=== PATIENT | male | born 1975 | race American Indian/Alaskan Native ===

== ENCOUNTER 2017-01-14 20:13 | Inpatient (IN) | payer MEDICAID, OTHER ==
[2017-01-14 20:13] VITALS: BMI 84.1
[2017-01-14 21:31] LABS: BASO # 0.1 K/uL (0.0-0.2); BASO % 0.8 % (0.0-2.0); EOS # 0.2 K/uL (0.0-0.7); EOS % 2.7 % (0.0-4.0); HEMATOCRIT 36.5 % (35.0-51.0); LYMPH # 3.2 K/uL (1.0-4.3); LYMPH % 46.9 % (20.0-40.0); MEAN CELL VOLUME 83.9 fL (80.0-94.0); MEAN CORPUSCULAR HEMOGLOBIN 27.9 pg (27.0-31.0); MEAN CORPUSCULAR HGB CONC 33.2 g/dL (33.0-37.0); MEAN PLATELET VOLUME 7.4 fL (7.2-11.7); MONO # 0.5 K/uL (0.0-0.8); MONO % 8.1 % (0.0-10.0); RED CELL DISTRIBUTION WIDTH 12.9 % (11.5-14.5); WHITE BLOOD COUNT 6.7 K/uL (4.8-10.8)
[2017-01-14 21:47] LABS: CHLORIDE 108 mmol/L (98-107); POTASSIUM 3.8 mmol/L (3.6-5.2); SODIUM 143 mmol/L (132-148)
[2017-01-14 21:49] LABS: BILIRUBIN,TOTAL 0.7 mg/dL (0.2-1.3); GFR AFRICAN-AMERICAN > 60
[2017-01-14 21:50] LABS: ALB/GLOB RATIO 1.3 (1.0-2.1); ALKALINE PHOSPHATASE 65 U/L (38-126); ALT/SGPT 17 U/L (21-72); AST/SGOT 18 U/L (17-59); BLOOD UREA NITROGEN 17 mg/dL (9-20); CALCIUM 8.7 mg/dl (8.6-10.4); CARBON DIOXIDE 24 mmol/L (22-30); GLUCOSE,RANDOM 84 mg/dL (75-110); TOTAL PROTEIN 6.9 g/dL (6.3-8.3)
[2017-01-14 21:51] LABS: ALCOHOL SERUM < 10 mg/dl (0-10)
[2017-01-14 21:53] LABS: RBC URINE 1 /hpf (0-3); URINE BACTERIA RARE (<OCC); URINE BILIRUBIN NEGATIVE (NEGATIVE); URINE BLOOD NEGATIVE (NEGATIVE); URINE COLOR Straw (YELLOW); URINE GLUCOSE (UA) NORMAL (Normal); URINE KETONE NEGATIVE (NEGATIVE); URINE PROTEIN NEGATIVE (NEGATIVE); URINE UROBILINOGEN NORMAL mg/dL (0.2-1.0); WBC URINE 18 /hpf (0-5)
--- NOTE | 2017-01-14 21:53 | C.PDOC ---
History Of Present Illness 41 year old patient, with a past medical history of schizophrenia, presents to the ED complaining of hearing voices for the past couple of days. He has command hallucinations telling him to kill people and himself. They tell him to stab and shoot people. He has been uncomfortable with the hallucinations which prompted the visit. Patient notes he hasn't had hallucinations in a long time. He is currently taking Ambien and Seroquel. Patient denies any physical complaints at this time. Time Seen by Provider: 01/14/17 20:56 Chief Complaint (Nursing): Psychiatric Evaluation History Per: Patient History/Exam Limitations: no limitations Onset/Duration Of Symptoms: Days (couple of days) Current Symptoms Are (Timing): Still Present Suicide/Self Injury Attempted (Context): None Modifying Factor(s): None Severity: None Pain Scale Rating Of: 0 Associated Symptoms: Other (command hallucinations) Recent travel outside of the [place]: No Past Medical History Reviewed: Historical Data, Nursing Documentation, Vital Signs Vital Signs: Last Vital Signs Temp 98.6 F 01/14/17 20:48 Pulse 58 L 01/14/17 20:48 Resp 16 01/14/17 20:48 BP 118/77 01/14/17 20:48 Pulse Ox 99 01/14/17 22:00 - Medical History PMH: Asthma, Depression, Schizophrenia - [facility] Procedures INDIVID PSYCHOTHERAP NEC (05/02/13) OTHER GROUP THERAPY (05/02/13) PSYCHIAT DRUG THERAP NEC (05/02/13) Family History: States: Unknown Family Hx - Social History Hx Tobacco Use: Yes Hx Alcohol Use: Yes Hx Substance Use: Yes (PCP, Cocaine, ETOH) - Immunization History Hx Tetanus Toxoid Vaccination: No Hx Influenza Vaccination: No Hx Pneumococcal Vaccination: No Review Of Systems Except As Marked, All Systems Reviewed And Found Negative. Respiratory: Negative for: Shortness of Breath Gastrointestinal: Negative for: Nausea, Vomiting Psych: Positive for: Other (command hallucinations) Physical Exam - Physical Exam Appears: Non-toxic, No Acute Distress Skin: Warm, Dry Head: Atraumatic, Normacephalic Neck: Normal ROM, Supple Chest: Symmetrical Cardiovascular: Rhythm Regular Respiratory: Normal Breath Sounds, No Rales, No Rhonchi, No Wheezing Back: Normal Inspection Extremity: Normal ROM Neurological/Psych: Oriented x3, Normal Speech Gait: Steady ED Course And Treatment - Laboratory Results Result Diagrams: 01/14/17 21:25 01/14/17 21:25 Lab Interpretation: No Acute Changes Interpretation Of Abnormal: UDS + PCP and cocaine O2 Sat by Pulse Oximetry: 99 (room air) Pulse Ox Interpretation: Normal Reevaluation Time: 23:22 Reassessment Condition: Unchanged (Patient evaluated by crisis and accepted for psych admission.) Medical Decision Making Medical Decision Making: Plan: * Labs Disposition - Disposition Disposition: HOSPITALIZED Disposition Time: 23:23 Condition: STABLE - POA Present On Arrival: None - Clinical Impression Clinical Impression: Schizophrenia - Scribe Statement The provider has reviewed the documentation as recorded by the Scribe Haylee Roberts Provider Attestation: All medical record entries made by the Scribe were at my direction and personally dictated by me. I have reviewed the chart and agree that the record accurately reflects my personal performance of the history, physical exam, medical decision making, and the department course for this patient. I have also personally directed, reviewed, and agree with the discharge instructions and disposition.
[2017-01-14 21:54] LABS: URINE LEUKOCYTE ESTERASE 2+ Leu/uL (Negative)
[2017-01-14 23:51] VITALS: O2SAT 98
[2017-01-15 07:52] VITALS: BP 112/74; PULSE 68; RESP 20; TEMP 97.6
--- NOTE | 2017-01-15 13:05 | PCM.PSYCH ---
Initial Psychiatric Evaluation - Initial Psychiatric Evaluation Type of Admission: Voluntary Legal Status: Capacity Chief Complaint (in patient's own words): I am feeling suicidal History of Present Illness and Precipitating Events: This is a 41 year old male presenting to [facility] as a self- referral for intrusive suicidal and homicidal thoughts as a result of command auditory hallucinations. Patient remained disorganized and internally preoccupied. He appeared delusional , paranoid and psychotic. He remained superficially cooperative but guarded about the details. He has a long history of schizophrenia paranoid type continuous. He has been admitted multiple times, he was last discharge from [facility] 1 year ago. As a result of the side-effects, pt reports non- compliance with medication. As per the ER note, pt stated, he is suicidal (without a plan), but has attempted suicide "many years ago" via hanging himself. Pt stated that he has been hearing the voices, which are unfamiliar, progrssively over the past week, and "on and off while in the ER." Pt reported homicidal ideation to "stab people in the abdomen," but denied having a weapon in his possession. Pt is currently linked with treatment at [facility] for schizophrenia and bipolar disorder, and reports seeing Dr. Garcia, most recently in December 2016 and is prescribed Seroquel and Ambien, but "that medication just makes it worse." Pt repotrs frequent use of cannabis, cocaine, and PCP, but has not "used anything since Thursday." Pt presents with depressed and anxious mood and blunted affect. PMH None reported Current Medications: Active Medications Generic Name Dose Route Start Last Admin Trade Name Freq PRN Reason Stop Dose Admin Diphenhydramine HCl 50 mg 01/15/17 00:39 01/15/17 01:12 Benadryl PO 50 mg Q6 PRN Administration Extra Pyramidal Symptoms Haloperidol 5 mg 01/15/17 00:39 01/15/17 01:12 Haldol PO 5 mg Q8 PRN Administration Moderate Agitation Haloperidol Lactate 5 mg 01/15/17 00:39 Haldol IM Q8 PRN Moderate Agitation Lorazepam 1 mg 01/15/17 00:39 Ativan PO Q6 PRN Anxiety Trazodone HCl 50 mg 01/15/17 22:00 Desyrel PO HS [facility] Past Psychiatric History - Past Psychiatric History Previous Treatment History: Inpatient Pertinent Medical Hx (Current Medical&Sleep Prob, Allergies): Allergies Allergy/AdvReac Type Severity Reaction Status Date / Time No Known Allergies Allergy Verified 01/14/17 20:52 QUEtiapine [SEROquel] 100 mg PO HS #7 tab 03/17/16 Zolpidem [Ambien] 5 mg PO HS 03/17/16 Benztropine [Cogentin] 1 mg PO BID #60 tab 03/21/16 Divalproex [Depakote DR] 500 mg PO BID #60 tcp 03/21/16 Haloperidol [Haldol] 10 mg PO BID #60 tab 03/21/16 traZODone [Desyrel] 100 mg PO HS PRN #30 tab 03/21/16 Review of Systems - Review of Systems All systems: reviewed and no additional remarkable complaints except - Psychiatric Psychiatric: Auditory Hallucinations, Change in Appetite, Homicidal Ideation, Irritability, Suicidal Ideation Mental Status Examination - Personal Presentation Personal Presentation: Looks stated age - Affect Affect: Constricted, Depressed - Motor Activity Motor Activity: Calm - Reliability in Providing Information Reliability in Providing Information: Good - Speech Speech: Organized - Mood Mood: Depressed, Anxious - Formal Thought Process Formal Thought Process: Hallucinations, Delusions, Paranoia, Loosening of associations - Hallucinations/Delusions Hallucinations: Visual, Auditory Delusions: Persecution - Obsessions/Compulsions Obsessions: No Compulsions: No - Cognitive Functions Orientation: Person, Place Sensorium: Alert Attention/Concentration: Attentive Abstract Thinking: [place] Estimate of Intelligence: Below average Judgement: Imparied, as evidence by: Poor judgement, Imparied, as evidence by: Lack of insight into illness - Risk Risk: Suicidal, Homicidal, Diminished functioning - Strength & Assets Inventory Strength & Assets Inventory: Cooperative - Limitations Limitations: Living alone DSM 5 DX - DSM 5 DSM 5 Diagnosis: Schizoaffective disorder bipolar type Cocaine use disorder severe PCP use disorder severe - Recommended/Plan of Treatment Treatment Recommendations and Plan of Treatment: Schizoaffective disorder bipolar type CBT Psychoeducation Supportive therapy, group therapy, individual therapy Prolixin 5 mg PO BID Neurontin 100 mg by mouth 3 times a day Trazodone 50 mg by mouth daily at bedtime Cocaine use disorder severe CBT Psychoeducation Supportive therapy, individual therapy Use AK for abstinence PCP use disorder severe CBT Psychoeducation Supportive therapy, individual therapy Use AK for abstinence - Smoking Cessation Smoking Cessation Initiated: No
== END 2017-01-15 15:50 | disposition left against medical advice (07) | DRG 430 ==
LOC: C.ER 20:13 → C.5E 23:23
PROVIDERS: ADMIT Psychiatry & Neurology Psychiatry; ATTEND Psychiatry & Neurology Psychiatry
PROC: GZ3ZZZZ Medication Management (ICD-10-PCS; principal; 2017-01-14)
PROC: HZ99ZZZ Pharmacotherapy for Substance Abuse Treatment, Other Replacement Medication (ICD-10-PCS; 2017-01-14)
PROC: GZHZZZZ Group Psychotherapy (ICD-10-PCS; 2017-01-14)
PROC: GZ56ZZZ Individual Psychotherapy, Supportive (ICD-10-PCS; 2017-01-14)
PROC: HZ59ZZZ Individual Psychotherapy for Substance Abuse Treatment, Supportive (ICD-10-PCS; 2017-01-14)
DX: F25.0 Schizoaffective disorder, bipolar type (principal); F14.10 Cocaine abuse, uncomplicated; F16.10 Hallucinogen abuse, uncomplicated; R45.851 Suicidal ideations; R45.850 Homicidal ideations; F12.90 Cannabis use, unspecified, uncomplicated; Z91.5 Personal history of self-harm

== ENCOUNTER 2017-02-22 12:33 | Inpatient (IN) | payer MEDICAID, OTHER ==
[2017-02-22 12:34] VITALS: BMI 84.1
[2017-02-22 12:43] VITALS: O2SAT 100
--- NOTE | 2017-02-22 12:53 | C.PDOC ---
History Of Present Illness 41-year-old male, PMHx includes Asthma, Bipolar Disorder, Depression, and Schizophrenia, presents to the emergency department with complaints of auditory hallucinations. Patient states he has been experiencing worsening auditory hallucinations today, states voices are telling him to kill himself and hurt others. Patients last alcohol and drug use was one week ago. Patient is non- compliant with psych meds x1 month. States he ran out of medications. No suicide attempt or hurting others. Time Seen by Provider: 02/22/17 12:50 Chief Complaint (Nursing): Psychiatric Evaluation History Per: Patient History/Exam Limitations: no limitations Current Symptoms Are (Timing): Still Present Past Medical History Reviewed: Historical Data, Nursing Documentation, Vital Signs Vital Signs: Last Vital Signs Temp 97 F L 02/23/17 09:02 Pulse 73 02/23/17 16:00 Resp 18 02/23/17 09:02 BP 112/72 02/23/17 16:00 Pulse Ox 100 02/22/17 15:12 - Medical History PMH: Asthma, Bipolar Disorder, Depression, Schizophrenia Denies: Diabetes (Patient denied), Hepatitis (Patient denied), HIV, HTN ( Patient denied), Chronic Kidney Disease, Seizures, Sexually Transmitted Disease (Patient denied) [place] [facility] [place] PS[facility]CHOTHERAPY (01/14/17) INDIV PSYCHOTHERAPY FOR SUBSTANCE ABUSE TREATMENT, SUPPORT (01/14/17) INDIVID PSYCHOTHERAP NEC (05/02/13) INDIVIDUAL PSYCHOTHERAPY, SUPPORTIVE (01/14/17) MEDICATION MANAGEMENT (01/14/17) OTHER GROUP THERAPY (05/02/13) PHARMACOTHERAPY FOR SUBSTANCE ABUSE, OTH REPLACE MED (01/14/17) PSYCHIAT DRUG THERAP NEC (05/02/13) Family History: States: No Known Family Hx - Social History Hx Tobacco Use: Yes Hx Alcohol Use: Yes Hx Substance Use: Yes (PCP, Cocaine) - Immunization History Hx Tetanus Toxoid Vaccination: No Hx Influenza Vaccination: No Hx Pneumococcal Vaccination: No Review Of Systems Except As Marked, All Systems Reviewed And Found Negative. Constitutional: Negative for: Fever Cardiovascular: Negative for: Chest Pain Respiratory: Negative for: Shortness of Breath Psych: Positive for: Suicidal ideation, Other (Auditory hallucinations) Physical Exam - Physical Exam Appears: Non-toxic, No Acute Distress, Other (active auditory hallucinations. SI /HI. Flat affect. No signs or sx of acute intox.) Skin: Warm, Dry, No Rash Head: Atraumatic Eye(s): bilateral: Normal Inspection Neck: Normal ROM Respiratory: No Accessory Muscle Use Extremity: Normal ROM Neurological/Psych: Oriented x3 ED Course And Treatment - Laboratory Results Result Diagrams: 02/22/17 13:07 02/22/17 13:07 O2 Sat by Pulse Oximetry: 100 Progress - Data Reviewed Data Reviewed: Lab, Old records - Critical Care Citical Care: Excluding Proc Time Critical Care Time: 90 minutes - Continuity of Care Discussed patient case with:: Patient, Family-HIPPA compliant Disposition Counseled Patient/Family Regarding: Studies Performed, Diagnosis - Disposition Disposition: HOSPITALIZED Disposition Time: 15:12 Condition: STABLE - POA Present On Arrival: None - Clinical Impression Clinical Impression: Schizoaffective disorder - Scribe Statement The provider has reviewed the documentation as recorded by the Scribe (Arleth Taylor) All medical record entries made by the Scribe were at my direction and personally dictated by me. I have reviewed the chart and agree that the record accurately reflects my personal performance of the history, physical exam, medical decision making, and the department course for this patient. I have also personally directed, reviewed, and agree with the discharge instructions and disposition. Decision To Admit - Pt Status Changed To: Hospital Disposition Of: Inpatient - Admit Certification Admit to Inpatient:: After my assessment, the patient will require hospitalization for at least two midnights. This is because of the severity of symptoms shown, intensity of services needed, and/or the medical risk in this patient being treated as an outpatient. - InPatient: Physician Admission Certification: I certify that this patient requires 2 or more midnights of care for the following reason:: SEE NOTE - . Bed Request Type: Psychiatry Admitting Physician: Williams La Patient Diagnosis: Schizoaffective disorder
[2017-02-22 13:12] LABS: BASO # 0.1 K/uL (0.0-0.2); BASO % 0.8 % (0.0-2.0); EOS # 0.2 K/uL (0.0-0.7); EOS % 2.9 % (0.0-4.0); HEMATOCRIT 40.2 % (35.0-51.0); LYMPH # 2.4 K/uL (1.0-4.3); LYMPH % 36.2 % (20.0-40.0); MEAN CELL VOLUME 84.5 fL (80.0-94.0); MEAN CORPUSCULAR HEMOGLOBIN 28.1 pg (27.0-31.0); MEAN CORPUSCULAR HGB CONC 33.2 g/dL (33.0-37.0); MEAN PLATELET VOLUME 7.8 fL (7.2-11.7); MONO # 0.5 K/uL (0.0-0.8); MONO % 7.3 % (0.0-10.0); NRBC % 0.1 % (0.0-2.0); RED CELL DISTRIBUTION WIDTH 13.1 % (11.5-14.5); WHITE BLOOD COUNT 6.7 K/uL (4.8-10.8)
[2017-02-22 13:30] LABS: CHLORIDE 103 mmol/L (98-107)
[2017-02-22 13:31] LABS: SODIUM 142 mmol/L (132-148)
[2017-02-22 13:33] LABS: ALB/GLOB RATIO 1.1 (1.0-2.1); ALKALINE PHOSPHATASE 80 U/L (38-126); AST/SGOT 25 U/L (17-59); BILIRUBIN,TOTAL 0.7 mg/dL (0.2-1.3); BLOOD UREA NITROGEN 20 mg/dL (9-20); CARBON DIOXIDE 25 mmol/L (22-30); GFR AFRICAN-AMERICAN > 60; TOTAL PROTEIN 7.2 g/dL (6.3-8.3)
[2017-02-22 13:34] LABS: ALCOHOL SERUM < 10 mg/dl (0-10); ALT/SGPT 25 U/L (21-72); CALCIUM 8.7 mg/dl (8.6-10.4); GLUCOSE,RANDOM 94 mg/dL (75-110)
[2017-02-22 13:48] LABS: RBC URINE 2 /hpf (0-3); URINE BILIRUBIN NEGATIVE (NEGATIVE); URINE BLOOD NEGATIVE (NEGATIVE); URINE COLOR Yellow (YELLOW); URINE GLUCOSE (UA) NORMAL (Normal); URINE KETONE NEGATIVE (NEGATIVE); URINE LEUKOCYTE ESTERASE 2+ Leu/uL (Negative); URINE PROTEIN NEGATIVE (NEGATIVE); URINE UROBILINOGEN NORMAL mg/dL (0.2-1.0); WBC URINE 57 /hpf (0-5)
--- NOTE | 2017-02-22 16:50 | PCM.BM ---
<Danette Cline - Last Filed: 02/22/17 16:49> Treatment Plan Problems - Problems identified on initial assessmt auditory hallucinations Date Initiated: 02/22/17 Time Initiated: 16:50 Assessment reference: NA Status: Active (positive for PCP and cocaine) Treatment assets and liabiliti Patient Assests: cooperative, negotiates basic needs, cognitively intact Patient Liabilities: financial problems, substance abuse - Milieu Protocol Maintain good personal hygiene: daily Encourage regular showers, daily Remind patient to perform daily oral care Conduct patient checks and document Observation sheet: Q15 minutes Maintain personal safety: every shift Educate patient to report safety concerns to staff, every shift Monitor environment for contraband/sharps Medication safety: Monitor for expected outcome, potential side effects: every shift, Assess barriers to learning: every shift, Assess readiness for medication education: every shift <Gilda Kaba - Last Filed: 02/23/17 11:22> Family Contact Family involvement: Patient does not wish Family/SO involvement - Goals for Treatment Patient goals for treatment: "I'll leave when I leave." Patient's family/SO goals for treatment: N/A Discharge/Continuing Care - Education Needs Education Needs: Patient Medication, Patient Coping Skills, Patient Community resources - Discharge Discharge Criteria: Tolerates medication w/o severe side effects, Reduction of target symptoms Discharge to:: Home - Treatment Team Participation Patient/Family/SO Statement: 02/23/17 11:24 No comment Discussed with Family/SO: No Was Patient/Family/SO present at Treatment Team Meeting: Yes <Williams La - Last Filed: 02/24/17 08:13> - Diagnosis (1) Schizoaffective disorder Status: Acute Interventions: 02/24/17 08:12 * Assess/adjust medications daily and /or as needed * Discuss risks, benefits, sided effects and alternatives of medications * See patient on an individual basis 7x/week to assess level of delusional thoughts/ideation * (2) Cocaine abuse Status: Acute Interventions: 02/24/17 08:13 * Assess 7x/week regarding severity of withdrawal * Educate regarding risks, benefits, side effects and alternatives of medications * Use Motivational Interviewing for abstinence * Use CBT for relapse prevention * Medication management for withdrawal symptoms * Encourage medication assisted treatment * (3) PCP (phencyclidine) abuse Status: Acute Interventions: 02/24/17 08:13 * Assess 7x/week regarding severity of withdrawal * Educate regarding risks, benefits, side effects and alternatives of medications * Use Motivational Interviewing for abstinence * Use CBT for relapse prevention * Medication management for withdrawal symptoms * Encourage medication assisted treatment *
[2017-02-22] MEDS: Divalproex 500 mg DR Tab PO SCH (20:22)
[2017-02-23] MEDS: Divalproex 500 mg DR Tab PO SCH ×2 (10:19→18:25)
--- NOTE | 2017-02-23 11:25 | PCM.PSYCH ---
Initial Psychiatric Evaluation - Initial Psychiatric Evaluation Type of Admission: Voluntary Legal Status: Capacity Chief Complaint (in patient's own words): "Depressed" History of Present Illness and Precipitating Events: The patient is seen, chart reviewed and case discussed. 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 This is a 41-year-old -[place] male single, homeless and unemployed. The patient is a poor historian and has low insight. He is here for depressive symptoms and suicidal ideation and he insists that PCP and cocaine help with psychiatric symptoms. He doesn't seem to have motivation to change his drug use. Currently, he denies feeling suicidal but reports he is still depressed. However he looks calm and happy. He was hearing voices on admission but they disappeared now. He agrees to stay and complete his treatment this time. He goes to [facility] program but was non-compliant with meds Past psych history: Previous psych admissions, again likely related to drug use Medical history: Denies Family psych history: Denies Current Medications: Active Medications Generic Name Dose Route Start Last Admin Trade Name Freq PRN Reason Stop Dose Admin Benztropine Mesylate 1 mg 02/22/17 18:00 02/23/17 10:16 Cogentin PO 1 mg BID ДМИТРИЙ Administration Divalproex Sodium 500 mg 02/22/17 18:00 02/23/17 10:[address] PO Not Given BID ДМИТРИЙ Haloperidol 10 mg 02/22/17 18:00 02/23/17 10:16 Haldol PO 10 mg BID ДМИТРИЙ Administration Haloperidol 5 mg 02/22/17 17:18 Haldol PO Q1H PRN agitation max 4x/24h Hydroxyzine HCl 50 mg 02/22/17 17:18 02/23/17 10:16 Atarax PO 50 mg Q6H PRN Administration Anxiety Ibuprofen 600 mg 02/22/17 17:18 Motrin Tab PO Q6H PRN Pain, moderate (4-7) Trazodone HCl 100 mg 02/22/17 17:18 Desyrel PO HS PRN Insomnia Past Psychiatric History - Past Psychiatric History Pertinent Medical Hx (Current Medical&Sleep Prob, Allergies): Allergies Allergy/AdvReac Type Severity Reaction Status Date / Time No Known Allergies Allergy Verified 02/22/17 12:41 QUEtiapine [SEROquel] 100 mg PO HS #7 tab 03/17/16 Zolpidem [Ambien] 5 mg PO HS 03/17/16 Benztropine [Cogentin] 1 mg PO BID #60 tab 03/21/16 Divalproex [Depakote DR] 500 mg PO BID #60 tcp 03/21/16 Haloperidol [Haldol] 10 mg PO BID #60 tab 03/21/16 traZODone [Desyrel] 100 mg PO HS PRN #30 tab 03/21/16 Review of Systems - Psychiatric Psychiatric: Abnormal Sleep Pattern, Anxiety, Depression, Hallucinations, Irritability, Paranoia. absent: Homicidal Ideation, Suicidal Ideation Mental Status Examination - Personal Presentation Personal Presentation: Looks older than stated age - Affect Affect: Constricted - Motor Activity Motor Activity: Calm - Reliability in Providing Information Reliability in Providing Information: Fair - Speech Speech: Organized - Mood Mood: Anxious - Formal Thought Process Formal Thought Process: Hallucinations, Paranoia - Cognitive Functions Orientation: Person, Place, Situation, Time Sensorium: Alert Attention/Concentration: Easily distracted Abstract Thinking: [place] Estimate of Intelligence: Below average Judgement: Imparied, as evidence by: Poor judgement Memory: Recent intact, as evidence by: Ability to recall events of the day, Remote impaired as evidenced by: Inability to recall historical events - Risk Risk: Diminished functioning - Strength & Assets Inventory Strength & Assets Inventory: Cooperative - Limitations Limitations: Living alone DSM 5 DX - DSM 5 DSM 5 Diagnosis: Schizoaffective d/o - depressed r/o substance-induced mood d/o and psychosis Cocaine use d/o - severe Cannabis use d/o - severe PCP use d/o - severe - Recommended/Plan of Treatment Treatment Recommendations and Plan of Treatment: Depakote for schizoaffective disorder Haldol for psychotic symptoms Support and psychoeducation Patient is refusing Seroquel Attend groups and activities Motivational interviewing for substance use CBT for relapse prevention Refer to [facility] but add substance program 32 minutes Projected ELOS: 4 days Prognosis: Fair - Smoking Cessation Smoking Cessation Initiated: Yes
[2017-02-24] MEDS: Divalproex 500 mg DR Tab PO SCH ×2 (09:52→17:31)
[2017-02-24 13:17] VITALS: BP 126/82; PULSE 98; RESP 19; TEMP 98.6
--- NOTE | 2017-02-24 14:05 | PCM.PYCHPN ---
Psychiatric Progress Note - Psychiatric Progress Note Patient seen today, length of contact: 16 min Patient Chief Complaint: I am feeling better Problems Identified/Issues Discussed: Patient seen and evaluated, chart reviewed and discussed with the nurse. The patient reports improvement in his mood and denies any feelings of hopelessness and helplessness. He reports improvement in his sleep, but he remained isolated and continued to pace back and forth in the hallways. The pt is compliant with medications and denies any side-effects. Symptoms are improving but needs more time to stabilize. After care discussed, support and psychoeducation given. Medication Change: No Medical Record Reviewed: Yes Mental Status Examination - Cognitive Function Orientation: Person, Place, Situation, Time Memory: Intact Attention: WNL Concentration: Poor Association: WNL Fund of Knowledge: Poor - Mood Mood: Anxious - Affect Affect: Constricted - Speech Speech: Soft - Formal Thought Process Formal Thought Process: Paranoia - Suicidal Ideation Suicidal Ideation: No - Homicidal Ideation Homicidal Ideation: No Goal/Treatment Plan - Goal/Treatment Plan Need for Continued Stay: Discharge may exacerbated symptoms, Severe functional impairment Progress Toward Problem(s) and Goals/Treatment Plan: Schizoaffective d/o - depressed r/o substance-induced mood d/o and psychosis Cocaine use d/o - severe Cannabis use d/o - severe PCP use d/o - severe Depakote for schizoaffective disorder Haldol for psychotic symptoms Support and psychoeducation Patient is refusing Seroquel Attend groups and activities Motivational interviewing for substance use CBT for relapse prevention Refer to [facility] but add substance program - Smoking Cessation Smoking Cessation Initiated: No
--- NOTE | 2017-02-25 17:13 | PCM.PYCHDC ---
Mental Status Examination - Mental Status Examination Orientation: Person, Place, Situation, Time Memory: Intact Mood: Neutral Affect: Constricted Speech: Soft Attention: WNL Concentration: WNL Association: WNL Fund of Knowledge: WNL Formal Thought Process: No Impairment Description of patient's judgement and insight: partially impaired Psychotic Thoughts and Behaviors: denies any AVH Suicidal Ideation: No Current Homicidal Ideation?: No Discharge Summary - Discharge Note Reason for Hospitalization: This is a 41-year-old -Nepalese male single, homeless and unemployed. The patient is a poor historian and has low insight. He is here for depressive symptoms and suicidal ideation and he insists that PCP and cocaine help with psychiatric symptoms. He doesn't seem to have motivation to change his drug use. Currently, he denies feeling suicidal but reports he is still depressed. However he looks calm and happy. He was hearing voices on admission but they disappeared now. He agrees to stay and complete his treatment this time. He goes to [facility] but was non-compliant with meds Past psych history: Previous psych admissions, again likely related to drug use Consultations:: List each consultation separately and include: 1. Reason for request. 2. Findings. 3. Follow-up Summary of Hospital Course include:: 1. Description of specific treatment plan utilized for patients during their course of treatmen. 2. Summarize the time- course for resolution of acute symptoms and/or regressed behaviors. 3. Describe issues identified and worked on during hospitalization. 4. Describe medication utilized. 5. Describe medical problems identified and treated. 6. Reassessment of suicide risk Summary of Hospital Course: During the course of his stay, patient (pt) started progressively improving, however he still had paranoia. Today in the evening patient, requested to be discharged. He was asked to sign 48 hours notice, but he started yelling and cursing at the staff and demanding to be discharged immediately. However, he denied any suicidal ideation or homicidal ideation and denied any auditory or visual hallucinations. - Final Diagnosis (DSM 5) Condition upon Discharge: STABLE DSM 5: Schizoaffective d/o - depressed Disposition: AGAINST MEDICAL ADVICE Follow-up Treatment Plan: Education: Pt was educated and counseled about the risks and benefits of taking and not taking medications. Pt was educated and counseled about the risks of drinking and abusing drugs. Pt was educated and counseled to go to the ER or call 911 if pt develop suicidal ideation or homicidal ideation, worsening of symptoms or severe side effects of the meds. - Smoking Cessation Smoking Cessation Medication prescribed: No - Antipsychotic Medications Pt discharged on 2 or more routine antipsychotic medications: No
== END 2017-02-24 17:35 | disposition left against medical advice (07) | DRG 430 ==
LOC: C.ER 12:33 → C.5E 15:12
PROVIDERS: ADMIT Psychiatry & Neurology Psychiatry; ATTEND Psychiatry & Neurology Psychiatry
PROC: GZ3ZZZZ Medication Management (ICD-10-PCS; principal; 2017-02-22)
PROC: HZ59ZZZ Individual Psychotherapy for Substance Abuse Treatment, Supportive (ICD-10-PCS; 2017-02-22)
PROC: GZHZZZZ Group Psychotherapy (ICD-10-PCS; 2017-02-22)
PROC: GZ56ZZZ Individual Psychotherapy, Supportive (ICD-10-PCS; 2017-02-22)
DX: F25.1 Schizoaffective disorder, depressive type (principal); R45.851 Suicidal ideations; F11.20 Opioid dependence, uncomplicated; F14.20 Cocaine dependence, uncomplicated; F16.20 Hallucinogen dependence, uncomplicated; F12.20 Cannabis dependence, uncomplicated; J45.909 Unspecified asthma, uncomplicated; Z59.0 Homelessness; Z91.14 Patient's other noncompliance with medication regimen; Z91.19 Patient's noncompliance with other medical treatment and regimen

== ENCOUNTER 2017-04-01 05:39 | Emergency (ER) | payer OTHER ==
[2017-04-01 05:39] VITALS: BMI 84.1
[2017-04-01 05:57] VITALS: RESP 18
--- NOTE | 2017-04-01 06:04 | C.PDOC ---
History Of Present Illness <Dhruv French - Last Filed: 04/01/17 06:07> <Idania Shukla - Last Filed: 04/01/17 08:57> 41 y/o male comes in c/o hearing voices stating "they're saying to kill himself and others" today. Denies somatic complaints. Patient is non-compliant with his medications. No suicidal or homicidal plan. (Dhruv French) History Per: Patient History/Exam Limitations: no limitations Onset/Duration Of Symptoms: Hrs Current Symptoms Are (Timing): Still Present Suicide/Self Injury Attempted (Context): None Severity: Mild Associated Symptoms: Suicidal Thoughts. denies: Suicidal Plan Recent travel outside of the [place]: No Additional History Per: Patient <Dhruv French - Last Filed: 04/01/17 06:07> <Idania Shukla - Last Filed: 04/01/17 08:57> Time Seen by Provider: 04/01/17 05:55 Chief Complaint (Nursing): Psychiatric Evaluation Past Medical History Reviewed: Historical Data, Nursing Documentation, Vital Signs - Medical History PMH: Asthma, Bipolar Disorder, Depression, Schizophrenia Denies: Diabetes (Patient denied), Hepatitis (Patient denied), HIV, HTN ( Patient denied), Chronic Kidney Disease, Seizures, Sexually Transmitted Disease (Patient denied) Family History: States: Unknown Family Hx - Social History Hx Tobacco Use: Yes Hx Alcohol Use: Yes Hx Substance Use: Yes (PCP, Cocaine) - Immunization History Hx Tetanus Toxoid Vaccination: No Hx Influenza Vaccination: No Hx Pneumococcal Vaccination: No <Dhruv French - Last Filed: 04/01/17 06:07> Review Of Systems Except As Marked, All Systems Reviewed And Found Negative. Constitutional: Negative for: Fever Cardiovascular: Negative for: Chest Pain Respiratory: Negative for: Cough, Shortness of Breath Gastrointestinal: Negative for: Abdominal Pain Psych: Positive for: Psychosis (Hearing voices), Suicidal ideation (No plan), Other (Homicidal ideation, No plan) <Dhruv French - Last Filed: 04/01/17 06:07> Physical Exam <Dhruv French - Last Filed: 04/01/17 06:07> <Idania Shukla - Last Filed: 04/01/17 08:57> - Physical Exam Additional Physical Exam Comments: Constitutional: No acute distress. Flat affect Head: Normocephalic. Atraumatic. Eyes: PERRL. ENT: Moist mucous membranes. Neck: Supple. Cardiovascular: Regular rate. Radial pulse 2+ bilaterally. Chest: No tenderness. Respiratory: Clear to auscultation bilaterally. GI: Soft. Nontender. Nondistended. Back: No CVA tenderness. Musculoskeletal: No tenderness or swelling of extremities. Skin: No rash. Neurologic: Alert, no focal deficit. (ManoloDhruv Muñoz) ED Course And Treatment O2 Sat by Pulse Oximetry: 97 (RA) Pulse Ox Interpretation: Normal <Dhruv French - Last Filed: 04/01/17 06:07> - Laboratory Results Result Diagrams: 04/01/17 06:27 04/01/17 06:27 <Idania Shukla - Last Filed: 04/01/17 08:57> Medical Decision Making <ManoloDhruv - Last Filed: 04/01/17 06:07> <Idania Shukla - Last Filed: 04/01/17 08:57> Medical Decision Making: Impression: 41 y/o male comes in c/o hearing voices stating "they're saying to kill himself and others" today. No suicidal or homicidal plan. Plans: * Blood work up * UA (ManoloDhruv) Disposition <ManoloDhruv - Last Filed: 04/01/17 06:07> Counseled Patient/Family Regarding: Studies Performed, Diagnosis, Need For Followup, Rx Given - Disposition Disposition Time: 09:00 <Idania Shukla - Last Filed: 04/01/17 08:57> - Disposition Referrals: [facility] [Outside] Disposition: HOME/ ROUTINE Condition: STABLE Prescriptions: QUEtiapine [SEROquel] 100 mg PO HS #10 tab Forms: [facility] (Slovak), General Discharge Instructions Print Language: VIETNAMESE - Clinical Impression Clinical Impression: PCP abuse, Psychosis - Scribe Statement The provider has reviewed the documentation as recorded by the Scribe <ManoloHdruv Toni - Last Filed: 04/01/17 06:07> <Idania Shukla - Last Filed: 04/01/17 08:57> - Scribe Statement Nia galan All medical record entries made by the Scribe were at my direction and personally dictated by me. I have reviewed the chart and agree that the record accurately reflects my personal performance of the history, physical exam, medical decision making, and the department course for this patient. I have also personally directed, reviewed, and agree with the discharge instructions and disposition. (Dhruv French) Addendum <Dhruv French - Last Filed: 04/01/17 06:07> <Idania Shukla - Last Filed: 04/01/17 08:57> Addendum: 04/01/17 08:55 Patient has been seen by psychiatrist Dr. mcintosh, who has cleared him for discharge from psychiatric standpoint. He requests patient be given Rx for seroquel 100mg PO qhs x 5 days. Patient is currently AAOx3, ambulating normally in ED and is clinically sober. He denies SI/HI. (Idania Shukla)
[2017-04-01 06:32] LABS: BASO % 0.6 % (0.0-2.0); EOS # 0.1 K/uL (0.0-0.7); EOS % 0.9 % (0.0-4.0); HEMATOCRIT 38.6 % (35.0-51.0); LYMPH % 13.7 % (20.0-40.0); MEAN CELL VOLUME 84.8 fL (80.0-94.0); MEAN CORPUSCULAR HEMOGLOBIN 28.4 pg (27.0-31.0); MEAN CORPUSCULAR HGB CONC 33.4 g/dL (33.0-37.0); MEAN PLATELET VOLUME 8.2 fL (7.2-11.7); MONO # 0.4 K/uL (0.0-0.8); MONO % 5.3 % (0.0-10.0); RED CELL DISTRIBUTION WIDTH 13.4 % (11.5-14.5); WHITE BLOOD COUNT 7.6 K/uL (4.8-10.8)
[2017-04-01 06:35] LABS: RBC URINE 1 /hpf (0-3); URINE BILIRUBIN NEGATIVE (NEGATIVE); URINE BLOOD NEGATIVE (NEGATIVE); URINE COLOR Yellow (YELLOW); URINE GLUCOSE (UA) NORMAL (Normal); URINE HYALINE CAST 0-2 /lpf (0-2); URINE KETONE NEGATIVE (NEGATIVE); URINE LEUKOCYTE ESTERASE NEG Leu/uL (Negative); URINE PROTEIN 1+ mg/dL (NEGATIVE); URINE UROBILINOGEN NORMAL mg/dL (0.2-1.0); WBC URINE 9 /hpf (0-5)
[2017-04-01 06:39] LABS: CHLORIDE 103 mmol/L (98-107)
[2017-04-01 06:40] LABS: POTASSIUM 4.1 mmol/L (3.6-5.2); SODIUM 143 mmol/L (132-148)
[2017-04-01 06:42] LABS: CARBON DIOXIDE 24 mmol/L (22-30); GFR AFRICAN-AMERICAN > 60
[2017-04-01 06:43] LABS: ALB/GLOB RATIO 1.2 (1.0-2.1); ALKALINE PHOSPHATASE 87 U/L (38-126); ALT/SGPT 28 U/L (21-72); AST/SGOT 29 U/L (17-59); BILIRUBIN,TOTAL 0.6 mg/dL (0.2-1.3); BLOOD UREA NITROGEN 19 mg/dL (9-20); CALCIUM 9.7 mg/dl (8.6-10.4); GLUCOSE,RANDOM 99 mg/dL (75-110); TOTAL PROTEIN 7.9 g/dL (6.3-8.3)
[2017-04-01 06:44] LABS: ALCOHOL SERUM < 10 mg/dl (0-10)
[2017-04-01 08:24] VITALS: BP 113/74; PULSE 74; TEMP 98.3; O2SAT 98
--- NOTE | 2017-04-01 08:42 | PCM.PSYCH ---
Initial Psychiatric Evaluation - Initial Psychiatric Evaluation Type of Admission: Voluntary Legal Status: Capacity Chief Complaint (in patient's own words): "I'm hearing voices" History of Present Illness and Precipitating Events: The pt is seen, chart reviewed and case discussed. He is well-known to us from several previous admissions, where he almost always leaves AMA and does not follow up. This is a 41-year-old -Swazi male single, homeless and unemployed. The patient is a poor historian and has low insight. He is here for telling him to hurt self and others. He again used PCP and did not follow up with [facility] , nor took his psych meds.. He is aware of this pattern and told the typewriter mechanic he would follow up. No intention or plan to hurt self or others. He is likely using symptoms to get admission again. He is advised to follow up with [facility] and also consider [facility] if he cannot see his [employer] workers (or come to [facility] as last resort if homi/mounika), he agreed. He is also encouraged to stay clean and educated on risks of drugs. Past psych history: Previous psych admissions, again likely related to drug use Medical history: Denies Family psych history: Denies Past Psychiatric History - Past Psychiatric History Previous Treatment History: Inpatient Pertinent Medical Hx (Current Medical&Sleep Prob, Allergies): Allergies Allergy/AdvReac Type Severity Reaction Status Date / Time No Known Allergies Allergy Verified 04/01/17 05:49 QUEtiapine [SEROquel] 100 mg PO HS #7 tab 03/17/16 Zolpidem [Ambien] 5 mg PO HS 03/17/16 Benztropine [Cogentin] 1 mg PO BID #60 tab 03/21/16 Divalproex [Depakote DR] 500 mg PO BID #60 tcp 03/21/16 Haloperidol [Haldol] 10 mg PO BID #60 tab 03/21/16 traZODone [Desyrel] 100 mg PO HS PRN #30 tab 03/21/16 Review of Systems - Psychiatric Psychiatric: Abnormal Sleep Pattern, Anhedonia, Anxiety, Depression, Difficulty Concentrating, Hallucinations, Irritability. absent: Homicidal Ideation, Suicidal Ideation Mental Status Examination - Personal Presentation Personal Presentation: Looks older than stated age - Affect Affect: Blunted - Motor Activity Motor Activity: Calm - Reliability in Providing Information Reliability in Providing Information: Fair - Speech Speech: Organized - Mood Mood: Depressed, Anxious - Formal Thought Process Formal Thought Process: Hallucinations, Paranoia - Cognitive Functions Orientation: Person, Place, Situation, Time Sensorium: Alert Attention/Concentration: Easily distracted Abstract Thinking: [place] Estimate of Intelligence: Below average Judgement: Imparied, as evidence by: Poor judgement Memory: Recent intact, as evidence by: Ability to recall events of the day, Remote intact, as evidenced by: Abilit to recall sig. life events - Risk Risk: Diminished functioning - Strength & Assets Inventory Strength & Assets Inventory: Cooperative - Limitations Limitations: Living alone DSM 5 DX - DSM 5 DSM 5 Diagnosis: Schizoaffective d/o - depressed PCP-induced psychosis Cocaine use d/o - severe Cannabis use d/o - severe PCP use d/o - severe - Recommended/Plan of Treatment Treatment Recommendations and Plan of Treatment: Cleared for discharge Recommend he go to back to [facility] program again Also consider IOP (on top of [facility]), i.e. [facility] Seroquel 100 mg HS Return to ED if mounika/homi 31 min
== END 2017-04-01 09:10 | disposition home or self-care (01) ==
LOC: C.ER 05:39
DX: F16.10 Hallucinogen abuse, uncomplicated (principal); F29 Unspecified psychosis not due to a substance or known physiological condition; F31.9 Bipolar disorder, unspecified

== ENCOUNTER 2017-04-01 17:59 | Emergency (ER) | payer OTHER ==
[2017-04-01 18:14] VITALS: BMI 34.4
[2017-04-01 18:18] VITALS: RESP 18; O2SAT 98
--- NOTE | 2017-04-01 18:53 | C.PDOC ---
History Of Present Illness 41 year old male presents to the ED with complaints of hearing voices telling him to kill himself. Patient was seen in [place] earlier this morning, was evaluated and discharged. He denies homicidal ideations or physical complaints at this time. Time Seen by Provider: 04/01/17 18:23 Chief Complaint (Nursing): Psychiatric Evaluation History Per: Patient History/Exam Limitations: no limitations Onset/Duration Of Symptoms: Hrs Current Symptoms Are (Timing): Still Present Suicide/Self Injury Attempted (Context): None Associated Symptoms: Suicidal Thoughts (hearing voices telling him to kill himself ). denies: Suicidal Plan Involuntary Hold By: None Recent travel outside of the [place]: No Additional History Per: Prior Records Past Medical History Reviewed: Historical Data, Nursing Documentation, Vital Signs Vital Signs: Last Vital Signs Temp 97.7 F 04/01/17 20:30 Pulse 64 04/01/17 20:30 Resp 18 04/01/17 20:30 BP 104/66 04/01/17 20:30 Pulse Ox 98 04/01/17 20:34 - Medical History PMH: Asthma, Bipolar Disorder, Depression, Schizophrenia - [facility] Procedures GROUP PSYCHOTHERAPY (02/22/17) INDIV PSYCHOTHERAPY FOR SUBSTANCE ABUSE TREATMENT, SUPPORT (02/22/17) INDIVID PSYCHOTHERAP NEC (05/02/13) INDIVIDUAL PSYCHOTHERAPY, SUPPORTIVE (02/22/17) MEDICATION MANAGEMENT (02/22/17) OTHER GROUP THERAPY (05/02/13) PHARMACOTHERAPY FOR SUBSTANCE ABUSE, OTH REPLACE MED (01/14/17) PSYCHIAT DRUG THERAP NEC (05/02/13) Family History: States: Unknown Family Hx - Social History Hx Tobacco Use: Yes Hx Alcohol Use: Yes Hx Substance Use: Yes (PCP, Cocaine) - Immunization History Hx Tetanus Toxoid Vaccination: No Hx Influenza Vaccination: No Hx Pneumococcal Vaccination: No Review Of Systems Constitutional: Negative for: Fever, Chills Cardiovascular: Negative for: Chest Pain, Palpitations Respiratory: Negative for: Cough, Shortness of Breath Gastrointestinal: Negative for: Nausea, Vomiting, Abdominal Pain, Diarrhea Psych: Positive for: Suicidal ideation (hearing voices telling him to kill himself) Physical Exam - Physical Exam Appears: Non-toxic, No Acute Distress Skin: Warm, Dry Head: Atraumatic Eye(s): bilateral: Normal Inspection Oral Mucosa: Moist Neck: Supple Chest: Symmetrical, No Deformity Cardiovascular: Rhythm Regular Respiratory: Normal Breath Sounds, No Rales, No Rhonchi, No Wheezing Gastrointestinal/Abdominal: Soft, No Tenderness, No Distention, No Guarding, No Rebound Extremity: Normal ROM, No Tenderness Neurological/Psych: Oriented x3, Normal Speech, Normal Cognition ED Course And Treatment - Laboratory Results Result Diagrams: 04/01/17 18:51 04/01/17 18:51 O2 Sat by Pulse Oximetry: 98 (room air ) Progress Note: Patient was re-examined by Crisis and cleared for discharge. Patient instructed to follow up with [facility], as previously instructed this morning. Disposition - Disposition Referrals: [facility], [Non-Staff] - Disposition: HOME/ ROUTINE Disposition Time: 19:30 Condition: GOOD Additional Instructions: Thank you for letting us take care of you today. The emergency medical care you received today was directed at your acute symptoms. If you were prescribed any medication, please fill it and take as directed. It may take several days for your symptoms to resolve. Return to the Emergency Department if your symptoms worsen, do not improve, or if you have any other problems. Please contact your doctor or call one of the physicians/clinics you have been referred to that are listed on the Patient Visit Information form that is included in your discharge packet. Bring any paperwork you were given at discharge with you along with any medications you are taking to your follow up visit. Our treatment cannot replace ongoing medical care by a primary care provider (PCP) outside of the emergency department. Thank you for allowing the [facility] team to be part of your care today. Follow up with [facility]/Path program as instructed. Take your medications as prescribed. Forms: [facility] (American) - Clinical Impression Clinical Impression: Depression - Scribe Statement The provider has reviewed the documentation as recorded by the Scribe Brandie Prince All medical record entries made by the Scribe were at my direction and personally dictated by me. I have reviewed the chart and agree that the record accurately reflects my personal performance of the history, physical exam, medical decision making, and the department course for this patient. I have also personally directed, reviewed, and agree with the discharge instructions and disposition.
[2017-04-01 19:00] LABS: URINE BILIRUBIN NEGATIVE (NEGATIVE); URINE BLOOD NEGATIVE (NEGATIVE); URINE COLOR Yellow (YELLOW); URINE GLUCOSE (UA) NORMAL (Normal); URINE KETONE NEGATIVE (NEGATIVE); URINE PROTEIN NEGATIVE (NEGATIVE); URINE UROBILINOGEN NORMAL mg/dL (0.2-1.0)
[2017-04-01 19:01] LABS: BASO # 0.1 K/uL (0.0-0.2); BASO % 0.7 % (0.0-2.0); EOS # 0.2 K/uL (0.0-0.7); HEMATOCRIT 36.8 % (35.0-51.0); LYMPH # 2.5 K/uL (1.0-4.3); LYMPH % 32.1 % (20.0-40.0); MEAN CELL VOLUME 84.4 fL (80.0-94.0); MEAN CORPUSCULAR HEMOGLOBIN 27.7 pg (27.0-31.0); MEAN CORPUSCULAR HGB CONC 32.8 g/dL (33.0-37.0); MEAN PLATELET VOLUME 8.1 fL (7.2-11.7); MONO # 0.9 K/uL (0.0-0.8); MONO % 10.9 % (0.0-10.0); NRBC % 0.1 % (0.0-2.0); RED CELL DISTRIBUTION WIDTH 13.3 % (11.5-14.5); WHITE BLOOD COUNT 7.9 K/uL (4.8-10.8)
[2017-04-01 19:03] LABS: CHLORIDE 106 mmol/L (98-107)
[2017-04-01 19:04] LABS: SODIUM 142 mmol/L (132-148)
[2017-04-01 19:05] LABS: RBC URINE 2 /hpf (0-3); URINE BACTERIA OCC (<OCC); WBC URINE 45 /hpf (0-5)
[2017-04-01 19:06] LABS: ALB/GLOB RATIO 1.2 (1.0-2.1); ALKALINE PHOSPHATASE 75 U/L (38-126); AST/SGOT 25 U/L (17-59); BILIRUBIN,TOTAL 0.7 mg/dL (0.2-1.3); BLOOD UREA NITROGEN 19 mg/dL (9-20); CARBON DIOXIDE 23 mmol/L (22-30); GFR AFRICAN-AMERICAN > 60; TOTAL PROTEIN 7.2 g/dL (6.3-8.3); URINE LEUKOCYTE ESTERASE 3+ Leu/uL (Negative)
[2017-04-01 19:07] LABS: ALCOHOL SERUM < 10 mg/dl (0-10); ALT/SGPT 29 U/L (21-72); CALCIUM 9.4 mg/dl (8.6-10.4); GLUCOSE,RANDOM 83 mg/dL (75-110); POTASSIUM 3.9 mmol/L (3.6-5.2)
[2017-04-01 20:31] VITALS: BP 104/66; PULSE 64; TEMP 97.7
== END 2017-04-01 20:00 | disposition home or self-care (01) ==
LOC: C.ER 17:59
DX: F32.9 Major depressive disorder, single episode, unspecified (principal); F20.9 Schizophrenia, unspecified
CPT/HCPCS: 80053; 81001; 85025; 99285; G0480

== ENCOUNTER 2017-04-05 18:50 | Emergency (ER) | payer OTHER ==
[2017-04-05 18:50] VITALS: BMI 34.4
[2017-04-05 19:24] LABS: BASO # 0.1 K/uL (0.0-0.2); BASO % 0.8 % (0.0-2.0); EOS # 0.3 K/uL (0.0-0.7); EOS % 3.7 % (0.0-4.0); HEMATOCRIT 40.9 % (35.0-51.0); LYMPH # 3.6 K/uL (1.0-4.3); LYMPH % 48.5 % (20.0-40.0); MEAN CELL VOLUME 84.3 fL (80.0-94.0); MEAN CORPUSCULAR HGB CONC 33.2 g/dL (33.0-37.0); MEAN PLATELET VOLUME 7.7 fL (7.2-11.7); MONO # 0.6 K/uL (0.0-0.8); MONO % 7.7 % (0.0-10.0); NRBC % 0.2 % (0.0-2.0); RED CELL DISTRIBUTION WIDTH 13.5 % (11.5-14.5); WHITE BLOOD COUNT 7.4 K/uL (4.8-10.8)
[2017-04-05 19:30] LABS: RBC URINE 1 /hpf (0-3); URINE BACTERIA OCC (<OCC); URINE BILIRUBIN NEGATIVE (NEGATIVE); URINE BLOOD NEGATIVE (NEGATIVE); URINE COLOR Yellow (YELLOW); URINE GLUCOSE (UA) NORMAL (Normal); URINE KETONE NEGATIVE (NEGATIVE); URINE LEUKOCYTE ESTERASE 1+ Leu/uL (Negative); URINE PROTEIN NEGATIVE (NEGATIVE); URINE UROBILINOGEN NORMAL mg/dL (0.2-1.0); WBC URINE 30 /hpf (0-5)
[2017-04-05 19:39] LABS: ALB/GLOB RATIO 1.1 (1.0-2.1); ALCOHOL SERUM < 10 mg/dl (0-10); ALKALINE PHOSPHATASE 87 U/L (38-126); ALT/SGPT 29 U/L (21-72); AST/SGOT 22 U/L (17-59); BILIRUBIN,TOTAL 0.6 mg/dL (0.2-1.3); BLOOD UREA NITROGEN 14 mg/dL (9-20); CALCIUM 9.5 mg/dl (8.6-10.4); CARBON DIOXIDE 24 mmol/L (22-30); CHLORIDE 105 mmol/L (98-107); GFR AFRICAN-AMERICAN > 60; GLUCOSE,RANDOM 82 mg/dL (75-110); POTASSIUM 3.8 mmol/L (3.6-5.2); SODIUM 143 mmol/L (132-148); TOTAL PROTEIN 7.8 g/dL (6.3-8.3)
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
[2017-04-06 06:10] VITALS: BP 111/69; PULSE 58; RESP 16; TEMP 98
[2017-04-08 09:27] VITALS: O2SAT 100
== END 2017-04-06 06:10 | disposition home or self-care (01) ==
LOC: C.ER 18:50
DX: F16.10 Hallucinogen abuse, uncomplicated (principal); F31.9 Bipolar disorder, unspecified; F20.9 Schizophrenia, unspecified
CPT/HCPCS: 80053; 81001; 85025; 99285; G0480

== ENCOUNTER 2017-04-06 10:08 | Observation (INO) | payer OTHER ==
[2017-04-06 10:12] VITALS: BMI 36.0
--- NOTE | 2017-04-06 10:28 | C.PDOC ---
Time Seen by Provider: 04/06/17 10:28 Chief Complaint (Nursing): Chest Pain Past Medical History Vital Signs: Last Vital Signs Temp 98.1 F 04/06/17 10:12 Pulse 105 H 04/06/17 10:12 Resp 18 04/06/17 10:12 BP 118/81 04/06/17 10:21 Pulse Ox 97 04/06/17 10:12 - Medical History PMH: Asthma, Bipolar Disorder, Depression, Schizophrenia Denies: Diabetes, Hepatitis, HIV, HTN, Chronic Kidney Disease, Seizures, Sexually Transmitted Disease - [facility] Procedures GROUP PSYCHOTHERAPY (02/22/17) INDIV PSYCHOTHERAPY FOR SUBSTANCE ABUSE TREATMENT, SUPPORT (02/22/17) INDIVID PSYCHOTHERAP NEC (05/02/13) INDIVIDUAL PSYCHOTHERAPY, SUPPORTIVE (02/22/17) MEDICATION MANAGEMENT (02/22/17) OTHER GROUP THERAPY (05/02/13) PHARMACOTHERAPY FOR SUBSTANCE ABUSE, OTH REPLACE MED (01/14/17) PSYCHIAT DRUG THERAP NEC (05/02/13) Family History: States: Unknown Family Hx - Social History Hx Tobacco Use: Yes Hx Alcohol Use: Yes Hx Substance Use: Yes (PCP, Cocaine) - Immunization History Hx Tetanus Toxoid Vaccination: No Hx Influenza Vaccination: No Hx Pneumococcal Vaccination: No ED Course And Treatment O2 Sat by Pulse Oximetry: 97 Disposition - Disposition Forms: [employer] (Solomon Islander)
[2017-04-06] MEDS ORDERED: Sodium Chloride 0.9% 1,000 ML IV STA (10:55)
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
[2017-04-06 11:22] LABS: WHITE BLOOD COUNT 5.6 K/uL (4.8-10.8)
[2017-04-06 11:25] LABS: BASO % 0.7 % (0.0-2.0); EOS # 0.3 K/uL (0.0-0.7); EOS % 4.7 % (0.0-4.0); HEMATOCRIT 40.1 % (35.0-51.0); LYMPH # 2.4 K/uL (1.0-4.3); LYMPH % 42.5 % (20.0-40.0); MEAN CELL VOLUME 85.6 fL (80.0-94.0); MEAN CORPUSCULAR HEMOGLOBIN 28.5 pg (27.0-31.0); MEAN CORPUSCULAR HGB CONC 33.3 g/dL (33.0-37.0); MEAN PLATELET VOLUME 8.2 fL (7.2-11.7); MONO # 0.4 K/uL (0.0-0.8); MONO % 6.5 % (0.0-10.0); RED CELL DISTRIBUTION WIDTH 13.5 % (11.5-14.5)
[2017-04-06 11:26] LABS: RBC URINE 2 /hpf (0-3); URINE BILIRUBIN NEGATIVE (NEGATIVE); URINE BLOOD NEGATIVE (NEGATIVE); URINE COLOR Yellow (YELLOW); URINE GLUCOSE (UA) NORMAL (Normal); URINE KETONE NEGATIVE (NEGATIVE); URINE LEUKOCYTE ESTERASE 1+ Leu/uL (Negative); URINE PROTEIN NEGATIVE (NEGATIVE); URINE UROBILINOGEN NORMAL mg/dL (0.2-1.0); WBC URINE 52 /hpf (0-5)
[2017-04-06 11:33] LABS: ALB/GLOB RATIO 1.2 (1.0-2.1); ALCOHOL SERUM < 10 mg/dl (0-10); ALKALINE PHOSPHATASE 63 U/L (38-126); ALT/SGPT 26 U/L (21-72); AST/SGOT 22 U/L (17-59); BILIRUBIN,TOTAL 0.9 mg/dL (0.2-1.3); BLOOD UREA NITROGEN 14 mg/dL (9-20); CALCIUM 9.2 mg/dl (8.6-10.4); CARBON DIOXIDE 23 mmol/L (22-30); CHLORIDE 105 mmol/L (98-107); GFR AFRICAN-AMERICAN > 60; GLUCOSE,RANDOM 81 mg/dL (75-110); SODIUM 143 mmol/L (132-148); TOTAL PROTEIN 7.2 g/dL (6.3-8.3)
[2017-04-06 11:34] LABS: INR 1.1
--- NOTE | 2017-04-06 11:41 | CT ---
PROCEDURE: CT HEAD WITHOUT CONTRAST. HISTORY: ? seizure COMPARISON: None available. TECHNIQUE: Axial computed tomography images were obtained through the head/brain without intravenous contrast. Radiation dose: Total exam DLP = 1029 mGy-cm. This CT exam was performed using one or more of the following dose reduction techniques: Automated exposure control, adjustment of the mA and/or kV according to patient size, and/or use of iterative reconstruction technique. FINDINGS: HEMORRHAGE: No intracranial hemorrhage. BRAIN: There is no intracranial edema mass effect or hydrocephalus. No suspicious extra-axial collection. No midline shift. Sulci and cisterns appear diffusely unremarkable. . VENTRICLES: Unremarkable. No hydrocephalus. CALVARIUM: Unremarkable. PARANASAL SINUSES: Unremarkable as visualized. No significant inflammatory changes. MASTOID AIR CELLS: Unremarkable as visualized. No inflammatory changes. OTHER FINDINGS: Incidental bilateral exophthalmos identified. IMPRESSION: Unremarkable unenhanced head CT. Incidental note is made of bilateral exophthalmos.
--- NOTE | 2017-04-06 12:11 | RAD ---
PROCEDURE: CHEST RADIOGRAPH, 1 VIEW HISTORY: sob COMPARISON: Portable chest 03/17/2016 FINDINGS: LUNGS: Clear. PLEURA: No pneumothorax or pleural fluid seen. CARDIOVASCULAR: Normal. OSSEOUS STRUCTURES: No significant abnormalities. VISUALIZED UPPER ABDOMEN: Normal. OTHER FINDINGS: None. IMPRESSION: No significant interval report yes change or acute cardiopulmonary disease appreciated.
--- NOTE | 2017-04-06 18:28 | CP.PCM.HP ---
Past Patient History - Infectious Disease Hx of Infectious Diseases: None - Past Social History Smoking Status: Never Smoked - CARDIAC Hx Hypertension: No - PULMONARY Hx Asthma: Yes - NEUROLOGICAL Hx Seizures: No - HEENT Hx HEENT Problems: No - RENAL Hx Chronic Kidney Disease: No - ENDOCRINE/METABOLIC Hx Endocrine Disorders: No - HEMATOLOGICAL/ONCOLOGICAL Hx Human Immunodeficiency Virus (HIV): No - INTEGUMENTARY Hx Dermatological Problems: No - MUSCULOSKELETAL/RHEUMATOLOGICAL Hx Musculoskeletal Disorders: No - GASTROINTESTINAL Hx Gastrointestinal Disorders: No - GENITOURINARY/GYNECOLOGICAL Hx Sexually Transmitted Disorders: No - PSYCHIATRIC Hx Bipolar Disorder: Yes Hx Depression: Yes Hx Schizophrenia: Yes Hx Substance Use: Yes (PCP, Cocaine) - SURGICAL HISTORY Hx Surgeries: No - ANESTHESIA Hx Anesthesia: No Hx Anesthesia Reactions: No Hx Malignant Hyperthermia: No Meds Allergies/Adverse Reactions: Allergies Allergy/AdvReac Type Severity Reaction Status Date / Time No Known Allergies Allergy Verified 04/05/17 18:57 Physical Exam - Constitutional Appears: Well - Head Exam Head Exam: ATRAUMATIC, NORMAL INSPECTION, NORMOCEPHALIC - Eye Exam Eye Exam: EOMI, Normal appearance, PERRL Pupil Exam: NORMAL ACCOMODATION, PERRL - ENT Exam ENT Exam: Mucous Membranes Moist, Normal Exam - Neck Exam Neck exam: Positive for: Normal Inspection - Respiratory Exam Respiratory Exam: Decreased Breath Sounds - Cardiovascular Exam Cardiovascular Exam: REGULAR RHYTHM, +S1, +S2 - GI/Abdominal Exam GI & Abdominal Exam: Diminished Bowel Sounds, Soft - Rectal Exam Rectal Exam: Deferred Results - Vital Signs Recent Vital Signs: Last Vital Signs Temp 98.1 F 04/06/17 10:12 Pulse 55 L 04/06/17 17:47 Resp 20 04/06/17 17:47 BP 109/60 04/06/17 17:47 Pulse Ox 98 04/06/17 17:47 - Labs Result Diagrams: 04/06/17 11:15 04/06/17 11:15
[2017-04-07] MEDS: Pantoprazole 40 mg EC Tab PO SCH (09:33)
[2017-04-07] MEDS: Enoxaparin 40 mg Syringe SC SCH (09:34)
[2017-04-07] MEDS ORDERED: Albuterol-Ipratrop 3 mg / 0.5 (3 ml) UD INH PRN (11:18)
[2017-04-07 11:26] LABS: BASO # 0.1 K/uL (0.0-0.2); BASO % 1.1 % (0.0-2.0); EOS # 0.3 K/uL (0.0-0.7); EOS % 5.7 % (0.0-4.0); HEMATOCRIT 38.4 % (35.0-51.0); LYMPH # 2.3 K/uL (1.0-4.3); LYMPH % 39.5 % (20.0-40.0); MEAN CELL VOLUME 84.3 fL (80.0-94.0); MEAN CORPUSCULAR HEMOGLOBIN 28.1 pg (27.0-31.0); MEAN CORPUSCULAR HGB CONC 33.3 g/dL (33.0-37.0); MEAN PLATELET VOLUME 8.5 fL (7.2-11.7); MONO # 0.5 K/uL (0.0-0.8); MONO % 8.3 % (0.0-10.0); NRBC % 0.1 % (0.0-2.0); RED CELL DISTRIBUTION WIDTH 13.2 % (11.5-14.5); WHITE BLOOD COUNT 5.8 K/uL (4.8-10.8)
[2017-04-07 11:42] LABS: CHLORIDE 112 mmol/L (98-107); SODIUM 147 mmol/L (132-148)
[2017-04-07 11:44] LABS: BILIRUBIN,TOTAL 0.5 mg/dL (0.2-1.3); CARBON DIOXIDE 21 mmol/L (22-30); CHOLESTEROL 101 mg/dL (0-199); GFR AFRICAN-AMERICAN > 60
[2017-04-07 11:45] LABS: ALB/GLOB RATIO 1.1 (1.0-2.1); ALKALINE PHOSPHATASE 42 U/L (38-126); ALT/SGPT 28 U/L (21-72); AST/SGOT 13 U/L (17-59); BLOOD UREA NITROGEN 12 mg/dL (9-20); GLUCOSE,RANDOM 74 mg/dL (75-110); PHOSPHOROUS 1.7 mg/dL (2.5-4.5); TOTAL PROTEIN 5.3 g/dL (6.3-8.3)
[2017-04-07 11:46] LABS: MAGNESIUM 1.3 mg/dL (1.6-2.3)
[2017-04-07 12:22] LABS: CALCIUM 6.8 mg/dl (8.6-10.4); POTASSIUM 2.9 mmol/L (3.6-5.2)
--- NOTE | 2017-04-07 12:48 | CP.PCM.PN ---
Subjective - Date & Time of Evaluation Date of Evaluation: 04/07/17 Time of Evaluation: 12:45 - Subjective Subjective: Service for DR. Ulices DAVIDSON Pt seen and examined at bedside. No acute distress. No events overnight. Pt still having some substernal chest pain. Admits to drug use. Cardio work up in progress. No fevers, chills, vomiting, diarrhea. Will add duonebs for sob. Objective - Vital Signs/Intake and Output Vital Signs (last 24 hours): Temp Pulse Resp BP Pulse Ox 98.1 F 76 20 114/81 97 04/07/17 08:37 04/07/17 08:37 04/07/17 08:37 04/07/17 08:37 04/07/17 08:37 - Medications Medications: Current Medications Albuterol/Ipratropium (Duoneb 3 Mg/0.5 Mg (3 Ml) Ud) 3 ml INH RQ6 PRN PRN Reason: Shortness of Breath Aspirin (Aspirin) 325 mg PO DAILY [facility] Last Admin: 04/07/17 09:34 Dose: 325 mg Enoxaparin Sodium (Lovenox) 40 mg SC DAILY [facility] Last Admin: 04/07/17 09:34 Dose: 40 mg Influenza Virus Vaccine (Afluria) 45 mcg IM .ONCE ONE Stop: 04/09/17 14:19 Morphine Sulfate (Morphine) 2 mg IVP Q6 PRN PRN Reason: Pain, severe (8-10) Last Admin: 04/07/17 09:36 Dose: 2 mg Pantoprazole Sodium (Protonix Ec Tab) 40 mg PO DAILY [facility] Last Admin: 04/07/17 09:33 Dose: 40 mg Pneumococcal Polyvalent Vaccine (Pneumovax 23 Vaccine) 0.5 ml IM .ONCE ONE Stop: 04/09/17 14:01 Rosuvastatin Calcium (Crestor) 10 mg PO HS [facility] - Labs Labs: 04/07/17 11:19 04/07/17 11:19 PT 12.6 SECONDS (9.7-12.2) H 04/06/17 11:15 INR 1.1 04/06/17 11:15 APTT 36 SECONDS (21-34) H 04/06/17 11:15 - Constitutional Appears: Non-toxic, No Acute Distress - Head Exam Head Exam: ATRAUMATIC, NORMAL INSPECTION, NORMOCEPHALIC - Eye Exam Eye Exam: EOMI - ENT Exam ENT Exam: Mucous Membranes Moist - Neck Exam Neck Exam: Full ROM, Normal Inspection - Respiratory Exam Respiratory Exam: Decreased Breath Sounds. absent: Respiratory Distress - Cardiovascular Exam Cardiovascular Exam: +S1, +S2 - GI/Abdominal Exam GI & Abdominal Exam: Soft, Normal Bowel Sounds. absent: Tenderness - Extremities Exam Extremities Exam: Full ROM, Normal Inspection - Back Exam Back Exam: NORMAL INSPECTION - Neurological Exam Neurological Exam: Alert, Awake, Oriented x3 - Psychiatric Exam Psychiatric exam: Normal Affect, Normal Mood - Skin Skin Exam: Dry, Intact, Normal Color, Warm Assessment and Plan - Assessment and Plan (Free Text) Assessment: This is a 41 yo male with past medical hx of substance abuse presenting with chief complaint of chest pain 1. Chest pain, r/o ACS -hemodynamically stable -EKG shows sinus jones at 58 -trops neg x 2 -asa 325 -lovenox 40 -morphine prn -duonebs for sob -crestor 10 PO HS -cardio consult. Dr. Garcia recs appreciated 2. SOB -will add duonebs -pulm consult. Dr. Finney. recs appreciated 3. hx of substance abuse -cessation encouraged -pt counseled 4. GI/DVT ppx -lovenox 40 daily -protonix [address] Davidson.
[2017-04-07 13:09] LABS: ALB/GLOB RATIO 1.1 (1.0-2.1); ALKALINE PHOSPHATASE 58 U/L (38-126); ALT/SGPT 24 U/L (21-72); AST/SGOT 19 U/L (17-59); BILIRUBIN,TOTAL 0.5 mg/dL (0.2-1.3); BLOOD UREA NITROGEN 14 mg/dL (9-20); CALCIUM 8.9 mg/dl (8.6-10.4); CARBON DIOXIDE 26 mmol/L (22-30); CHLORIDE 103 mmol/L (98-107); GFR AFRICAN-AMERICAN > 60; GLUCOSE,RANDOM 103 mg/dL (75-110); POTASSIUM 3.7 mmol/L (3.6-5.2); SODIUM 142 mmol/L (132-148); TOTAL PROTEIN 6.8 g/dL (6.3-8.3)
--- NOTE | 2017-04-07 14:28 | CP.PCM.PN ---
Subjective - Date & Time of Evaluation Date of Evaluation: 04/07/17 Time of Evaluation: 09:00 - Subjective Subjective: clinically same Objective - Vital Signs/Intake and Output Vital Signs (last 24 hours): Temp Pulse Resp BP Pulse Ox 98.1 F 76 20 114/81 97 04/07/17 08:37 04/07/17 08:37 04/07/17 08:37 04/07/17 08:37 04/07/17 08:37 - Medications Medications: Current Medications Albuterol/Ipratropium (Duoneb 3 Mg/0.5 Mg (3 Ml) Ud) 3 ml INH RQ6 PRN PRN Reason: Shortness of Breath Aspirin (Aspirin) 325 mg PO DAILY [facility] Last Admin: 04/07/17 09:34 Dose: 325 mg Enoxaparin Sodium (Lovenox) 40 mg SC DAILY [facility] Last Admin: 04/07/17 09:34 Dose: 40 mg Influenza Virus Vaccine (Afluria) 45 mcg IM .ONCE ONE Stop: 04/09/17 14:19 Morphine Sulfate (Morphine) 2 mg IVP Q6 PRN PRN Reason: Pain, severe (8-10) Last Admin: 04/07/17 09:36 Dose: 2 mg Pantoprazole Sodium (Protonix Ec Tab) 40 mg PO DAILY [facility] Last Admin: 04/07/17 09:33 Dose: 40 mg Pneumococcal Polyvalent Vaccine (Pneumovax 23 Vaccine) 0.5 ml IM .ONCE ONE Stop: 04/09/17 14:01 Rosuvastatin Calcium (Crestor) 10 mg PO HS [facility] - Labs Labs: 04/07/17 11:19 04/07/17 12:52 PT 12.6 SECONDS (9.7-12.2) H 04/06/17 11:15 INR 1.1 04/06/17 11:15 APTT 36 SECONDS (21-34) H 04/06/17 11:15 - Constitutional Appears: Well - Head Exam Head Exam: ATRAUMATIC, NORMAL INSPECTION, NORMOCEPHALIC - Eye Exam Eye Exam: EOMI, Normal appearance, PERRL Pupil Exam: NORMAL ACCOMODATION, PERRL - ENT Exam ENT Exam: Mucous Membranes Moist, Normal Exam - Neck Exam Neck Exam: Full ROM, Normal Inspection. absent: Lymphadenopathy - Respiratory Exam Respiratory Exam: Decreased Breath Sounds - Cardiovascular Exam Cardiovascular Exam: REGULAR RHYTHM, +S1, +S2 - GI/Abdominal Exam GI & Abdominal Exam: Soft, Diminished Bowel Sounds - Rectal Exam Rectal Exam: Deferred
--- NOTE | 2017-04-07 14:58 | CP.PCM.CON ---
History of Present Illness - History of Present Illness History of Present Illness: Resident Consult Note for Dr. Garcia 41 year old male with past medical history of Schizoaffective disorder, PCP and cocaine abuse presents to the ED complaining of chest pain started yesterday morning around 9am. Patient was resting in bed trying to go back to sleep at the time. Patient states the pain is located at left sternal border, radiating to his left arm, and 8/10 in intensity. The pain is worse with left arm motion and it improves with resting. Patient reports to have similar chest pain in the past but never had any cardiac workup done in the past. Patient is a poor historian. Patient was told that he shortness of breath and having foams coming out of his mouth while asleep, but he does not remember seeing it. Patient admits to PCP use and last time was 3 days ago. He denies having headache, fever, chills, nausea, vomiting, or diarrhea. PMHx:Schizoaffective, PCP and cocaine use PSHxL denies Allergy: none Social Hx: admits to social alcohol use, cigar smoking, PCP and cocaine use. Recent laid off from [employer] in [place], [place]. Family Hx: mother had [place] in the 40s Home Meds: none Review of Systems - Constitutional Constitutional: As Per HPI. absent: Chills, Headache - EENT Eyes: As Per HPI. absent: Blurred Vision, Change in Vision Ears: As Per HPI. absent: Dizziness Nose/Mouth/Throat: As Per HPI - Cardiovascular Cardiovascular: As Per HPI, Chest Pain, Chest Pain at Rest, Dyspnea. absent: Diaphoresis, Pedal Edema - Respiratory Respiratory: As Per HPI, Dyspnea. absent: Cough, Wheezing - Gastrointestinal Gastrointestinal: As Per HPI. absent: Abdominal Pain, Diarrhea, Nausea, Vomiting - Musculoskeletal Musculoskeletal: As Per HPI - Integumentary Integumentary: As Per HPI. absent: Dry Skin, Lesions, Skin Ulcer - Neurological Neurological: As Per HPI. absent: Abnormal Speech, Dizziness, Headaches, Tremor - Psychiatric Psychiatric: As Per HPI - Endocrine Endocrine: As Per HPI - Hematologic/Lymphatic Hematologic: As Per HPI Past Patient History - Infectious Disease Hx of Infectious Diseases: None - Past Social History Smoking Status: Never Smoked - CARDIAC Hx Hypertension: No - PULMONARY Hx Asthma: Yes - NEUROLOGICAL Hx Seizures: No - HEENT Hx HEENT Problems: No - RENAL Hx Chronic Kidney Disease: No - ENDOCRINE/METABOLIC Hx Endocrine Disorders: No - HEMATOLOGICAL/ONCOLOGICAL Hx Human Immunodeficiency Virus (HIV): No - INTEGUMENTARY Hx Dermatological Problems: No - MUSCULOSKELETAL/RHEUMATOLOGICAL Hx Falls: Yes (dizziness) - GASTROINTESTINAL Hx Gastrointestinal Disorders: No - GENITOURINARY/GYNECOLOGICAL Hx Sexually Transmitted Disorders: No - PSYCHIATRIC Hx Substance Use: Yes (cocaine/PCP) - SURGICAL HISTORY Hx Surgeries: No - ANESTHESIA Hx Anesthesia: No Hx Anesthesia Reactions: No Hx Malignant Hyperthermia: No Meds Allergies/Adverse Reactions: Allergies Allergy/AdvReac Type Severity Reaction Status Date / Time No Known Allergies Allergy Verified 04/05/17 18:57 - Medications Medications: Current Medications Albuterol/Ipratropium (Duoneb 3 Mg/0.5 Mg (3 Ml) Ud) 3 ml INH RQ6 PRN PRN Reason: Shortness of Breath Aspirin (Aspirin) 325 mg PO DAILY [facility] Last Admin: 04/07/17 09:34 Dose: 325 mg Enoxaparin Sodium (Lovenox) 40 mg SC DAILY [facility] Last Admin: 04/07/17 09:34 Dose: 40 mg Influenza Virus Vaccine (Afluria) 45 mcg IM .ONCE ONE Stop: 04/09/17 14:19 Morphine Sulfate (Morphine) 2 mg IVP Q6 PRN PRN Reason: Pain, severe (8-10) Last Admin: 04/07/17 09:36 Dose: 2 mg Pantoprazole Sodium (Protonix Ec Tab) 40 mg PO DAILY [facility] Last Admin: 04/07/17 09:33 Dose: 40 mg Pneumococcal Polyvalent Vaccine (Pneumovax 23 Vaccine) 0.5 ml IM .ONCE ONE Stop: 04/09/17 14:01 Rosuvastatin Calcium (Crestor) 10 mg PO [facility] Physical Exam - Constitutional Appears: Non-toxic, No Acute Distress - Head Exam Head Exam: ATRAUMATIC, NORMAL INSPECTION - Eye Exam Eye Exam: EOMI, Normal appearance - ENT Exam ENT Exam: Mucous Membranes Moist - Neck Exam Neck exam: Positive for: Normal Inspection - Respiratory Exam Respiratory Exam: Clear to Auscultation Bilateral, NORMAL BREATHING PATTERN. absent: Respiratory Distress - Cardiovascular Exam Cardiovascular Exam: +S1, +S2 Additional comments: Reproducible with left arm movement - GI/Abdominal Exam GI & Abdominal Exam: Normal Bowel Sounds, Soft. absent: Tenderness - Extremities Exam Extremities exam: Positive for: normal inspection - Neurological Exam Neurological exam: Alert, Oriented x3 - Psychiatric Exam Psychiatric exam: Normal Affect, Normal Mood - Skin Skin Exam: Dry, Intact Results - Vital Signs Recent Vital Signs: Last Vital Signs Temp 98.1 F 04/07/17 08:37 Pulse 76 04/07/17 08:37 Resp 20 04/07/17 08:37 BP 114/81 04/07/17 08:37 Pulse Ox 97 04/07/17 08:37 - Labs Result Diagrams: 04/07/17 11:19 04/07/17 12:52 Labs: Laboratory Results - last 24 hr 04/06/17 04/07/17 04/07/17 22:34 11:19 11:19 WBC 5.8 RBC 4.56 Hgb 12.8 Hct 38.4 MCV 84.3 MCH 28.1 MCHC 33.3 RDW 13.2 Plt Count 257 MPV 8.5 Neut % (Auto) 45.4 L Lymph % (Auto) 39.5 [place] % (Auto) 8.3 Eos % (Auto) 5.7 H Baso % (Auto) 1.1 Neut # 2.6 Lymph # 2.3 [place] # 0.5 Eos # 0.3 Baso # 0.1 Sodium 147 Potassium 2.9 L Chloride 112 H Carbon Dioxide 21 L Anion Gap 17 BUN 12 Creatinine 0.9 Est GFR ( Amer) > 60 Est GFR (Non-Af Amer) > 60 Random Glucose 74 L Calcium 6.8 L Phosphorus 1.7 L Magnesium 1.3 L Total Bilirubin 0.5 AST 13 L D ALT 28 Alkaline Phosphatase 42 Total Creatine Kinase 119 CK-MB (Mass) 0.46 Troponin I, Quant < 0.0120 Total Protein 5.3 L Albumin 2.8 L D Globulin 2.5 Albumin/Globulin Ratio 1.1 Triglycerides 151 H Cholesterol 101 LDL Cholesterol Direct 57 HDL Cholesterol 26 L 04/07/17 12:52 WBC RBC Hgb Hct MCV MCH MCHC RDW Plt Count MPV Neut % (Auto) Lymph % (Auto) [place] % (Auto) Eos % (Auto) Baso % (Auto) Neut # Lymph # [place] # Eos # Baso # Sodium 142 Potassium 3.7 Chloride 103 Carbon Dioxide 26 Anion Gap 17 BUN 14 Creatinine 1.2 Est GFR ( Amer) > 60 Est GFR (Non-Af Amer) > 60 Random Glucose 103 Calcium 8.9 Phosphorus Magnesium Total Bilirubin 0.5 AST 19 ALT 24 Alkaline Phosphatase 58 Total Creatine Kinase CK-MB (Mass) Troponin I, Quant Total Protein 6.8 Albumin 3.6 Globulin 3.3 Albumin/Globulin Ratio 1.1 Triglycerides Cholesterol LDL Cholesterol Direct HDL Cholesterol Assessment & Plan - Assessment and Plan (Free Text) Assessment: Chest pain r/o ACS -EKG NSR @58bpm without acute ST changes -Troponin negative X2 -NPO past midnight -Stress test and echo tomorrow -ASA, crestor 10mg -Follow up AM labs PCP and cocaine abuse -Cessation was strongly advised -Avoid beta blockers -UDS positive for PCP and cocaine Case discussed with attending Dr. Garcia
--- NOTE | 2017-04-07 15:35 | CP.PCM.CON ---
History of Present Illness - History of Present Illness History of Present Illness: Reason for consultation: Choking sensation at night and dyspnea on exertion 41-year-old male with history of drug abuse, schizoaffective disorder who presented to the emergency room complaining of choking/ gasping for air at night while sleeping. Patient states these symptoms occurred before and was [facility] Patient also had some chest discomfort. Complaining of dyspnea on exertion. Complaining of nocturnal snoring and feeling tired and does off during the daytime Review of Systems - Review of Systems All systems: reviewed and no additional remarkable complaints except (Choking sensation at night and dyspnea on exertion) Past Patient History - Infectious Disease Hx of Infectious Diseases: None - Past Social History Smoking Status: Never Smoked - CARDIAC Hx Hypertension: No - PULMONARY Hx Asthma: Yes - NEUROLOGICAL Hx Seizures: No - HEENT Hx HEENT Problems: No - RENAL Hx Chronic Kidney Disease: No - ENDOCRINE/METABOLIC Hx Endocrine Disorders: No - HEMATOLOGICAL/ONCOLOGICAL Hx Human Immunodeficiency Virus (HIV): No - INTEGUMENTARY Hx Dermatological Problems: No - MUSCULOSKELETAL/RHEUMATOLOGICAL Hx Falls: Yes (dizziness) - GASTROINTESTINAL Hx Gastrointestinal Disorders: No - GENITOURINARY/GYNECOLOGICAL Hx Sexually Transmitted Disorders: No - PSYCHIATRIC Hx Substance Use: Yes (cocaine/PCP) - SURGICAL HISTORY Hx Surgeries: No - ANESTHESIA Hx Anesthesia: No Hx Anesthesia Reactions: No Hx Malignant Hyperthermia: No Meds Allergies/Adverse Reactions: Allergies Allergy/AdvReac Type Severity Reaction Status Date / Time No Known Allergies Allergy Verified 04/05/17 18:57 - Medications Medications: Current Medications Albuterol/Ipratropium (Duoneb 3 Mg/0.5 Mg (3 Ml) Ud) 3 ml INH RQ6 PRN PRN Reason: Shortness of Breath Aspirin (Aspirin) 325 mg PO DAILY [facility] Last Admin: 04/07/17 09:34 Dose: 325 mg Enoxaparin Sodium (Lovenox) 40 mg SC DAILY [facility] Last Admin: 04/07/17 09:34 Dose: 40 mg Influenza Virus Vaccine (Afluria) 45 mcg IM .ONCE ONE Stop: 04/09/17 14:19 Morphine Sulfate (Morphine) 2 mg IVP Q6 PRN PRN Reason: Pain, severe (8-10) Last Admin: 04/07/17 09:36 Dose: 2 mg Pantoprazole Sodium (Protonix Ec Tab) 40 mg PO DAILY [facility] Last Admin: 04/07/17 09:33 Dose: 40 mg Pneumococcal Polyvalent Vaccine (Pneumovax 23 Vaccine) 0.5 ml IM .ONCE ONE Stop: 04/09/17 14:01 Rosuvastatin Calcium (Crestor) 10 mg PO [facility] Physical Exam - Constitutional Appears: No Acute Distress - Head Exam Head Exam: ATRAUMATIC, NORMOCEPHALIC - Eye Exam Eye Exam: Normal appearance - ENT Exam ENT Exam: Mucous Membranes Moist - Neck Exam Neck exam: Positive for: Normal Inspection - Respiratory Exam Respiratory Exam: Clear to Auscultation Bilateral - Cardiovascular Exam Cardiovascular Exam: REGULAR RHYTHM - GI/Abdominal Exam GI & Abdominal Exam: Normal Bowel Sounds, Soft - Extremities Exam Extremities exam: Positive for: normal inspection - Neurological Exam Neurological exam: Alert, Oriented x3 Results - Vital Signs Recent Vital Signs: Last Vital Signs Temp 98.1 F 04/07/17 08:37 Pulse 76 04/07/17 08:37 Resp 20 04/07/17 08:37 BP 114/81 04/07/17 08:37 Pulse Ox 97 04/07/17 08:37 - Labs Result Diagrams: 04/07/17 11:19 04/07/17 12:52 Labs: Laboratory Results - last 24 hr 04/06/17 04/07/17 04/07/17 22:34 11:19 11:19 WBC 5.8 RBC 4.56 Hgb 12.8 Hct 38.4 MCV 84.3 MCH 28.1 MCHC 33.3 RDW 13.2 Plt Count 257 MPV 8.5 Neut % (Auto) 45.4 L Lymph % (Auto) 39.5 [place] % (Auto) 8.3 Eos % (Auto) 5.7 H Baso % (Auto) 1.1 Neut # 2.6 Lymph # 2.3 [place] # 0.5 Eos # 0.3 Baso # 0.1 Sodium 147 Potassium 2.9 L Chloride 112 H Carbon Dioxide 21 L Anion Gap 17 BUN 12 Creatinine 0.9 Est GFR ( Amer) > 60 Est GFR (Non-Af Amer) > 60 Random Glucose 74 L Calcium 6.8 L Phosphorus 1.7 L Magnesium 1.3 L Total Bilirubin 0.5 AST 13 L D ALT 28 Alkaline Phosphatase 42 Total Creatine Kinase 119 CK-MB (Mass) 0.46 Troponin I, Quant < 0.0120 Total Protein 5.3 L Albumin 2.8 L D Globulin 2.5 Albumin/Globulin Ratio 1.1 Triglycerides 151 H Cholesterol 101 LDL Cholesterol Direct 57 HDL Cholesterol 26 L 04/07/17 04/07/17 12:52 14:28 WBC RBC Hgb Hct MCV MCH MCHC RDW Plt Count MPV Neut % (Auto) Lymph % (Auto) [place] % (Auto) Eos % (Auto) Baso % (Auto) Neut # Lymph # [place] # Eos # Baso # Sodium 142 Potassium 3.7 Chloride 103 Carbon Dioxide 26 Anion Gap 17 BUN 14 Creatinine 1.2 Est GFR ( Amer) > 60 Est GFR (Non-Af Amer) > 60 Random Glucose 103 Calcium 8.9 Phosphorus Magnesium Total Bilirubin 0.5 AST 19 ALT 24 Alkaline Phosphatase 58 Total Creatine Kinase 92 CK-MB (Mass) Troponin I, Quant Total Protein 6.8 Albumin 3.6 Globulin 3.3 Albumin/Globulin Ratio 1.1 Triglycerides Cholesterol LDL Cholesterol Direct HDL Cholesterol Assessment & Plan (1) Choking episode occurring at night Status: Acute Comment: Rule out obstructive sleep apnea. CPAP at night. will need sleep study (2) Cocaine abuse Status: Acute
[2017-04-08] MEDS: Magnesium Sulfate 1 gm in D5W 1 GM/100 ML BAG IVPB SCH ×2 (00:01→00:51)
--- NOTE | 2017-04-08 00:32 | CARD ---
APPROVED REPORT EKG Measurement Heart [id number] HI [id number] <Conclusion> Sinus bradycardia with sinus arrhythmia Otherwise normal ECG
[2017-04-08 08:12] LABS: CHLORIDE 106 mmol/L (98-107); SODIUM 141 mmol/L (132-148)
[2017-04-08 08:14] LABS: ALB/GLOB RATIO 1.2 (1.0-2.1); ALKALINE PHOSPHATASE 56 U/L (38-126); AST/SGOT 22 U/L (17-59); BASO # 0.1 K/uL (0.0-0.2); BASO % 0.9 % (0.0-2.0); BILIRUBIN,TOTAL 0.6 mg/dL (0.2-1.3); CARBON DIOXIDE 25 mmol/L (22-30); EOS # 0.4 K/uL (0.0-0.7); EOS % 6.4 % (0.0-4.0); GFR AFRICAN-AMERICAN > 60; HEMATOCRIT 38.1 % (35.0-51.0); LYMPH # 2.6 K/uL (1.0-4.3); LYMPH % 45.8 % (20.0-40.0); MEAN CELL VOLUME 84.3 fL (80.0-94.0); MEAN CORPUSCULAR HEMOGLOBIN 28.4 pg (27.0-31.0); MEAN CORPUSCULAR HGB CONC 33.6 g/dL (33.0-37.0); MEAN PLATELET VOLUME 8.3 fL (7.2-11.7); MONO # 0.5 K/uL (0.0-0.8); MONO % 8.3 % (0.0-10.0); NRBC % 0.2 % (0.0-2.0); RED CELL DISTRIBUTION WIDTH 13.3 % (11.5-14.5); TOTAL PROTEIN 6.8 g/dL (6.3-8.3); WHITE BLOOD COUNT 5.8 K/uL (4.8-10.8)
[2017-04-08 08:15] LABS: ALT/SGPT 24 U/L (21-72); BLOOD UREA NITROGEN 16 mg/dL (9-20); CALCIUM 8.3 mg/dl (8.6-10.4); GLUCOSE,RANDOM 79 mg/dL (75-110); PHOSPHOROUS 3.5 mg/dL (2.5-4.5)
[2017-04-08] MEDS: Potassium & Sodium Phosphate PO SCH ×2 (10:00→13:54)
[2017-04-08] MEDS: Pantoprazole 40 mg EC Tab PO SCH (11:04)
[2017-04-08] MEDS: Enoxaparin 40 mg Syringe SC SCH (11:04)
--- NOTE | 2017-04-08 15:54 | PCM.PSYCH ---
Initial Psychiatric Evaluation - Initial Psychiatric Evaluation Type of Admission: Voluntary Legal Status: Capacity Chief Complaint (in patient's own words): Psych consult called for hx of uncontrolled depression, bipolar, schizophrenia, recent substance use History of Present Illness and Precipitating Events: Patient is a 41 year old male, currently living in [place] with his mother and sister, single and from his since 2008, with 3 children (ages 19, 16 and 1) who was recently laid off from his job at [employer] in [place] 1 month ago. pt was admitted om medical floor because of chest pain. Patient appears irritable during the interview and appears to not want to answer questions. Patient reports a history of depression, bipolar and schizophrenia. He states he was admitted to a psychiatric unit once last year and once this year, and states that the medications he was given sometimes helped and sometimes made his symptoms worse. He states that he hasn't seen a psychiatrist in "a while" and reports that he's never had a regular doctor, and has only seen psychiatrists when he was in the hospital. He states he was prescribed Ambien, Seroquel and another medicine he can't recall but stopped taking them "months ago" because he ran out and doesn't see a regular doctor. Regarding his symptoms of depression, he states that he's "always" been depressed. He denies any feelings of helplessness, hopelessness, and difficulty sleeping. He reports occasional decreased interest in activities, difficulty concentrating all the time, a decreased appetite and periods of weight loss and weight gain in the past, and restlessness. However he denies any AVH/SI/HI. Past medical history: asthma Current Medications: Active Medications Generic Name Dose Route Start Last Admin Trade Name Freq PRN Reason Stop Dose Admin Albuterol/Ipratropium 3 ml 04/07/17 11:18 Duoneb 3 Mg/0.5 Mg (3 Ml) Ud INH RQ6 PRN Shortness of Breath Aspirin 325 mg 04/07/17 10:00 04/08/17 11:04 Aspirin PO 325 mg DAILY [facility] Administration Enoxaparin Sodium 40 mg 04/07/17 10:00 04/08/17 11:04 Lovenox SC 40 mg DAILY ДМИТРИЙ Administration Influenza Virus Vaccine 45 mcg 04/09/17 14:18 Afluria IM 04/09/17 14:19 .ONCE ONE Morphine Sulfate 2 mg 04/06/17 22:07 04/07/17 09:36 Morphine IVP 2 mg Q6 PRN Administration Pain, severe (8-10) Pantoprazole Sodium 40 mg 04/07/17 10:00 04/08/17 11:04 Protonix Ec Tab PO 40 mg DAILY ДМИТРИЙ Administration Pneumococcal Polyvalent Vaccine 0.5 ml 04/09/17 14:00 Pneumovax 23 Vaccine IM 04/09/17 14:01 .ONCE ONE Potassium Phos/Sodium Phos 1 pkt 04/08/17 10:00 04/08/17 13:54 Neutra-Phos PO 04/15/17 10:01 1 pkt TID ДМИТРИЙ Administration Rosuvastatin Calcium 10 mg 04/07/17 22:00 04/07/17 21:30 Crestor PO 10 mg HS ДМИТРИЙ Administration Past Psychiatric History - Past Psychiatric History Previous Treatment History: Inpatient Pertinent Medical Hx (Current Medical&Sleep Prob, Allergies): Allergies Allergy/AdvReac Type Severity Reaction Status Date / Time No Known Allergies Allergy Verified 04/05/17 18:57 No Known Home Med 04/06/17 Review of Systems - Review of Systems All systems: reviewed and no additional remarkable complaints except - Psychiatric Psychiatric: Anxiety, Irritability, UNREMARKABLE. absent: Suicidal Ideation Mental Status Examination - Personal Presentation Personal Presentation: Looks stated age - Affect Affect: Constricted, Depressed - Motor Activity Motor Activity: Calm - Reliability in Providing Information Reliability in Providing Information: Poor, due to altered mood - Speech Speech: Organized - Mood Mood: Depressed - Formal Thought Process Formal Thought Process: No Impairment - Obsessions/Compulsions Obsessions: No Compulsions: No - Cognitive Functions Orientation: Person, Place, Situation, Time Sensorium: Alert Attention/Concentration: Attentive Abstract Thinking: [place] Estimate of Intelligence: Below average Judgement: Imparied, as evidence by: Poor judgement, Imparied, as evidence by: Lack of insight into illness - Risk Risk: Diminished functioning DSM 5 DX - DSM 5 DSM 5 Diagnosis: Schizoaffective disorder bipolar type Cocaine use disorder severe PCP use disorder severe - Recommended/Plan of Treatment Treatment Recommendations and Plan of Treatment: Schizoaffective disorder bipolar type Cocaine use disorder severe PCP use disorder severe Pt psychiatrically cleared for f/u with OPC. - Smoking Cessation Smoking Cessation Initiated: No
[2017-04-08 16:15] VITALS: BP 105/68; RESP 20; TEMP 98.1; O2SAT 95
--- NOTE | 2017-04-08 16:17 | CP.PCM.PN ---
Subjective - Date & Time of Evaluation Date of Evaluation: 04/08/17 Time of Evaluation: 12:10 - Subjective Subjective: Patient seen and examined. Patient states slept better last night with CPAP No shortness of breath Had stress test done today Denies any chest pain Afebrile Objective - Vital Signs/Intake and Output Vital Signs (last 24 hours): Temp Pulse Resp BP Pulse Ox 97.6 F 64 18 110/73 97 04/08/17 07:05 04/08/17 07:52 04/08/17 07:05 04/08/17 07:05 04/08/17 07:05 Intake and Output: 04/08/17 04/08/17 06:59 18:59 Intake Total 200 480 Balance 200 480 - Medications Medications: Current Medications Albuterol/Ipratropium (Duoneb 3 Mg/0.5 Mg (3 Ml) Ud) 3 ml INH RQ6 PRN PRN Reason: Shortness of Breath Aspirin (Aspirin) 325 mg PO DAILY [facility] Last Admin: 04/08/17 11:04 Dose: 325 mg Enoxaparin Sodium (Lovenox) 40 mg SC DAILY [facility] Last Admin: 04/08/17 11:04 Dose: 40 mg Influenza Virus Vaccine (Afluria) 45 mcg IM .ONCE ONE Stop: 04/09/17 14:19 Morphine Sulfate (Morphine) 2 mg IVP Q6 PRN PRN Reason: Pain, severe (8-10) Last Admin: 04/07/17 09:36 Dose: 2 mg Pantoprazole Sodium (Protonix Ec Tab) 40 mg PO DAILY [facility] Last Admin: 04/08/17 11:04 Dose: 40 mg Pneumococcal Polyvalent Vaccine (Pneumovax 23 Vaccine) 0.5 ml IM .ONCE ONE Stop: 04/09/17 14:01 Potassium Phos/Sodium Phos (Neutra-Phos) 1 pkt PO TID [facility] Stop: 04/15/17 10:01 Last Admin: 04/08/17 13:54 Dose: 1 pkt Rosuvastatin Calcium (Crestor) 10 mg PO HS [facility] Last Admin: 04/07/17 21:30 Dose: 10 mg - Labs Labs: 04/08/17 07:32 04/08/17 07:32 PT 12.6 SECONDS (9.7-12.2) H 04/06/17 11:15 INR 1.1 04/06/17 11:15 APTT 36 SECONDS (21-34) H 04/06/17 11:15 - Constitutional Appears: No Acute Distress - Head Exam Head Exam: ATRAUMATIC, NORMOCEPHALIC - Eye Exam Eye Exam: Normal appearance - ENT Exam ENT Exam: Mucous Membranes Moist - Neck Exam Neck Exam: Normal Inspection - Respiratory Exam Respiratory Exam: Clear to Ausculation Bilateral - Cardiovascular Exam Cardiovascular Exam: REGULAR RHYTHM - GI/Abdominal Exam GI & Abdominal Exam: Soft, Normal Bowel Sounds - Extremities Exam Extremities Exam: Normal Inspection - Neurological Exam Neurological Exam: Alert, Oriented x3 Assessment and Plan (1) Choking episode occurring at night Assessment & Plan: likely secondary to sleep apnea Continue CPAP at night and consider sleep study as outpatient Cardiac workup Psychiatric evaluation Status: Acute (2) Cocaine abuse Status: Acute
--- NOTE | 2017-04-08 16:31 | CP.PCM.PN ---
Subjective - Date & Time of Evaluation Date of Evaluation: 04/08/17 Time of Evaluation: 16:30 - Subjective Subjective: Progress note. Attending: Dr. Ulices Roberts Pt seen and examined at bedside. No acute distress. No events overnight. No fevers, chills, vomiting, diarrhea. Clinically doing better Objective - Vital Signs/Intake and Output Vital Signs (last 24 hours): Temp Pulse Resp BP Pulse Ox 98.1 F 56 L 20 105/68 95 04/08/17 16:00 04/08/17 16:00 04/08/17 16:00 04/08/17 16:00 04/08/17 16:00 Intake and Output: 04/08/17 04/08/17 06:59 18:59 Intake Total 200 480 Balance 200 480 - Medications Medications: Current Medications Albuterol/Ipratropium (Duoneb 3 Mg/0.5 Mg (3 Ml) Ud) 3 ml INH RQ6 PRN PRN Reason: Shortness of Breath Aspirin (Aspirin) 325 mg PO DAILY [facility] Last Admin: 04/08/17 11:04 Dose: 325 mg Enoxaparin Sodium (Lovenox) 40 mg SC DAILY [facility] Last Admin: 04/08/17 11:04 Dose: 40 mg Influenza Virus Vaccine (Afluria) 45 mcg IM .ONCE ONE Stop: 04/09/17 14:19 Morphine Sulfate (Morphine) 2 mg IVP Q6 PRN PRN Reason: Pain, severe (8-10) Last Admin: 04/07/17 09:36 Dose: 2 mg Pantoprazole Sodium (Protonix Ec Tab) 40 mg PO DAILY [facility] Last Admin: 04/08/17 11:04 Dose: 40 mg Pneumococcal Polyvalent Vaccine (Pneumovax 23 Vaccine) 0.5 ml IM .ONCE ONE Stop: 04/09/17 14:01 Potassium Phos/Sodium Phos (Neutra-Phos) 1 pkt PO TID [facility] Stop: 04/15/17 10:01 Last Admin: 04/08/17 13:54 Dose: 1 pkt Rosuvastatin Calcium (Crestor) 10 mg PO HS [facility] Last Admin: 04/07/17 21:30 Dose: 10 mg - Labs Labs: 04/08/17 07:32 04/08/17 07:32 PT 12.6 SECONDS (9.7-12.2) H 04/06/17 11:15 INR 1.1 04/06/17 11:15 APTT 36 SECONDS (21-34) H 04/06/17 11:15 - Constitutional Appears: Non-toxic, No Acute Distress - Head Exam Head Exam: ATRAUMATIC, NORMAL INSPECTION, NORMOCEPHALIC - Eye Exam Eye Exam: EOMI - ENT Exam ENT Exam: Mucous Membranes Moist - Neck Exam Neck Exam: Full ROM, Normal Inspection - Respiratory Exam Respiratory Exam: NORMAL BREATHING PATTERN. absent: Respiratory Distress - Cardiovascular Exam Cardiovascular Exam: +S1, +S2 - GI/Abdominal Exam GI & Abdominal Exam: Soft, Normal Bowel Sounds. absent: Tenderness - Extremities Exam Extremities Exam: Full ROM, Normal Inspection - Neurological Exam Neurological Exam: Alert, Awake, Oriented x3 - Psychiatric Exam Psychiatric exam: Normal Affect, Normal Mood - Skin Skin Exam: Dry, Intact, Normal Color, Warm Assessment and Plan - Assessment and Plan (Free Text) Assessment: This is a 41 yo male with past medical hx of substance abuse presenting with chief complaint of chest pain 1. Chest pain, r/o ACS -hemodynamically stable -EKG shows sinus jones at 58 -trops neg x 2 -asa 325 -lovenox 40 -morphine prn -duonebs for sob -crestor 10 PO HS -cardio consult. Dr. Jose cota appreciated -stress test normal 2. SOB -will add duonebs -pulm consult. Dr. Finney. cipriano appreciated -will need sleep study as an outpatient 3. hx of substance abuse -cessation encouraged -pt counseled -pt also has hx of depression and bipolar -f/u outpatient psych 4. GI/DVT ppx -lovenox 40 daily -protonix 40 daily Dispo: plan for discharge today discussed with Dr. Roberts.
[2017-04-09 00:38] VITALS: PULSE 72
[2017-04-09] MEDS ORDERED: Pneumococcal 23-Valent Vaccine IM ONE (14:00)
[2017-04-09] MEDS ORDERED: Influenza Virus Vaccine 45 mcg/0.5 ml Syr IM ONE (14:18)
--- NOTE | 2017-04-12 10:25 | CARD ---
APPROVED REPORT Protocol: JULIO C Test Type: TREADMILL TEST Attending Physician: Dr. LIMA Technologist: CD Test Indications: CP SOB COCAINE ABUSE Target HR: 181 bpm Resting ECG: Normal Resting Heart Rate: 70 bpm Resting Blood Pressure: /mmHg submaximum (85%): 154 bpm TEST SUMMARY [id number]:01..1.066/.0. PRETESTWARM-UP01:101.00.01.770/.0. EXERCISESTAGE 103:[id number]/80.0. EXERCISESTAGE 203:[id number]/80.0. EXERCISESTAGE 301:[id number]/80.0. [id number]/70.0. POST EXERCISE Reason for Termination: Target heart rate reached Target HR: NoMax HR: 137 bpm75% of Maximum Predicted HR: 181 bpm Exercise duration: 3 Stage07:14 min:secExercise capacity: 10.1METs Max Blood Pressure: 126/80mmHg Blood Pressure response to exercise: Appropriate Heart Rate response to exercise: Appropriate Chest Pain: Yesnon-limitingAngina index: 0 Arrhythmia: Yesventricular premature beats-isolated ST Change: YesDepression upslopingDeviation: 0 mm INTERPRETATION Stress EKG Conclusion: Normal stress test
--- NOTE | 2017-04-12 11:12 | CARD ---
APPROVED REPORT EXAM: Two-dimensional and M-mode echocardiogram with Doppler and color Doppler. Other Information Quality : GoodRhythm : NSR INDICATION Dyspnea Chest Pain COCAINE ABUSE 2D DIMENSIONS IVSd1.1 (0.7-1.1cm)Aortic Root (2D)2.8 (2.0-3.7cm) LVDd5.0 (3.9-5.9cm)PWd1.0 (0.7-1.1cm) LVDs3.6 (2.5-4.0cm)FS (%) 28.3 % LVEF (%)54.4 (>50%) M-Mode DIMENSIONS Left Atrium (MM)3.51 (2.5-4.0cm)Aortic Root2.96 (2.2-3.7cm) Aortic Cusp Exc.2.28 (1.5-2.0cm) Mitral Valve MV E Mzcypsgc03.9cm/sMV A Ulrrmhtx29.7cm/sE/A ratio1.5 TDI E/Lateral E'0.0E/Medial E'0.0 Tricuspid Valve TR Peak Qczovbbi524gb/sTR Peak Gr.[id number] <Conclusion> Left ventricle: thickness: normal; size: normal; overall ejection fraction: 65%: diastolic filling pressures: normal Mitral valve: annulus: normal: leaflets: normal: excursion: normal; no significant trans-mitral gradient: no significant incompetence: left atrium: normal Aortic valve: leaflets: normal: excursion: normal; no significant trans-aortic gradient: No significant incompetence: aortic root: normal Right sided Structures: Pulmonary valve: normal; no significant incompetence; Tricuspid valve: normal; no significant incompetence: Intra-cardiac hemodynamics: pulmonary systolic pressures: normal; central venous pressures: normal No pericardial effusion
== END 2017-04-08 20:46 | disposition home or self-care (01) ==
LOC: C.ER 10:08 → C.9E 15:07 → C.5T 23:31 → C.5S 04-08 09:07 → C.5T 04-08 09:09 → C.5S 04-08 09:25
PROVIDERS: ADMIT Internal Medicine Nephrology; ATTEND Internal Medicine Nephrology
DX: R07.9 Chest pain, unspecified (principal); F14.20 Cocaine dependence, uncomplicated; R06.02 Shortness of breath; J45.909 Unspecified asthma, uncomplicated; B20 Human immunodeficiency virus [HIV] disease; E11.22 Type 2 diabetes mellitus with diabetic chronic kidney disease; I12.9 Hypertensive chronic kidney disease with stage 1 through stage 4 chronic kidney disease, or unspecified chronic kidney disease; N18.9 Chronic kidney disease, unspecified; G40.909 Epilepsy, unspecified, not intractable, without status epilepticus
CPT/HCPCS: 36415; 70450; 71010; 80053; 80061; 81001; 82550; 82553; 83735; 84100; 84484; 85025; 85610; 85730; 93005; 93017; 93306; 94660; 96360; 96374; 99285; G0378; G0480; J1650; J2270; J3475; J7040

== ENCOUNTER 2017-05-03 00:42 | Emergency (ER) | payer OTHER ==
[2017-05-03 00:42] VITALS: BMI 36.0
--- NOTE | 2017-05-03 01:27 | C.PDOC ---
History Of Present Illness <Gideon Tavarez - Last Filed: 05/03/17 06:49> <Gabrielle Escobar - Last Filed: 05/03/17 11:19> 41 year old male with history of schizophrenia and substance abuse presents to the ED with complaints of suicidal and homicidal ideations. Patient admits to using PCP tonight and had been seen multiple times in ED for similar presentation. 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 (Gideon Tavarez) History Per: Patient History/Exam Limitations: no limitations Onset/Duration Of Symptoms: Unknown Current Symptoms Are (Timing): Still Present Suicide/Self Injury Attempted (Context): None Modifying Factor(s): Other (PCP ) Severity: None Pain Scale Rating Of: 0 Associated Symptoms: Suicidal Thoughts. denies: Suicidal Plan Involuntary Hold By: None Recent travel outside of the [place]: No Additional History Per: Prior Records <Gideon Tavarez - Last Filed: 05/03/17 06:49> <Gabrielle Escobar - Last Filed: 05/03/17 11:19> Time Seen by Provider: 05/03/17 01:08 Chief Complaint (Nursing): Psychiatric Evaluation Past Medical History Reviewed: Historical Data, Nursing Documentation, Vital Signs - Medical History PMH: Asthma, Bipolar Disorder, Depression, Schizophrenia Family History: States: Unknown Family Hx - Social History Hx Tobacco Use: Yes Hx Alcohol Use: Yes (stopped 3 days ago) Hx Substance Use: Yes (cocaine/PCP) - Immunization History Hx Tetanus Toxoid Vaccination: No Hx Influenza Vaccination: No Hx Pneumococcal Vaccination: No <Gideon Tavarez - Last Filed: 05/03/17 06:49> Vital Signs: Last Vital Signs Temp 97.8 F 05/03/17 09:04 Pulse 59 L 05/03/17 09:04 Resp 16 05/03/17 09:04 BP 119/80 05/03/17 09:04 Pulse Ox 98 05/03/17 09:04 - [facility] Procedures GROUP PSYCHOTHERAPY (02/22/17) INDIV PSYCHOTHERAPY FOR SUBSTANCE ABUSE TREATMENT, SUPPORT (02/22/17) INDIVID PSYCHOTHERAP NEC (05/02/13) INDIVIDUAL PSYCHOTHERAPY, SUPPORTIVE (02/22/17) MEDICATION MANAGEMENT (02/22/17) OTHER GROUP THERAPY (05/02/13) PHARMACOTHERAPY FOR SUBSTANCE ABUSE, OTH REPLACE MED (01/14/17) PSYCHIAT DRUG THERAP NEC (05/02/13) Review Of Systems Constitutional: Negative for: Fever, Chills Cardiovascular: Negative for: Chest Pain, Palpitations Respiratory: Negative for: Cough, Shortness of Breath Gastrointestinal: Negative for: Nausea, Vomiting, Abdominal Pain, Diarrhea Psych: Positive for: Suicidal ideation <Gideon Tavarez - Last Filed: 05/03/17 06:49> Physical Exam - Physical Exam Appears: Non-toxic, No Acute Distress Skin: Warm, Dry Head: Atraumatic, Normacephalic Eye(s): bilateral: Normal Inspection, PERRL, EOMI Oral Mucosa: Moist Neck: Supple Chest: Symmetrical, No Deformity Cardiovascular: Rhythm Regular, No Murmur Respiratory: Normal Breath Sounds, No Rales, No Rhonchi, No Wheezing Gastrointestinal/Abdominal: Soft, No Tenderness, No Distention, No Guarding, No Rebound Extremity: Normal ROM, No Tenderness Neurological/Psych: Oriented x3, Other (Bizarre affect ) <Gideon Tavarez - Last Filed: 05/03/17 06:49> ED Course And Treatment - Laboratory Results Result Diagrams: 05/03/17 01:43 05/03/17 01:43 O2 Sat by Pulse Oximetry: 97 (RA) Progress Note: Labs were ordered and patient was evaluated by galley worker. <Gideon Tavarez - Last Filed: 05/03/17 06:49> - Laboratory Results Result Diagrams: 05/03/17 01:43 05/03/17 01:43 ECG: Interpreted By Me ECG Rhythm: Sinus Bradycardia Rate From EC Pulse Ox Interpretation: Normal - Radiology CXR: Interpreted by Me CXR Interpretation: Yes: No Acute Disease <Gabrielle Escobar - Last Filed: 05/03/17 11:19> Progress <Gideon Tavarez - Last Filed: 05/03/17 06:49> - Data Reviewed Data Reviewed: Lab, Diagnostic imaging, EKG, Old records <Gabrielle Escobar - Last Filed: 05/03/17 11:19> - Re-Evaluation Re-evaluation Note: 05/03/17 09:33 S/P CRISIS EVAL: PT STILL W ACTIVE SI/SA. PERSIST INTOX? PT W PRIOR AMA FROM INPT PSYCH. NONCOMPLIANT W OUTPT MEDS. PER DR REED, PT REQUIRES [facility] SCREEN. PT UNCOOPERATIVE W OVERNIGHT CRISIS EVAL. 05/03/17 10:04 REFUSING CXR FOR [facility] SCREEN AND WISHES DC HOME. PT REMAINS NOT CLEAR FOR DC. ADVISED NEED FOR [facility] EVAL FOR DISPO AND REQUIREMENT FOR CXR. 05/03/17 10:31 INCR AGITATION, UNCOOPERATIVE WANTING DC HOME. CRISIS HERB AT BEDSIDE, DR TYLER TO EVAL. 05/03/17 11:18 PT CALM COOPERATIVE. S/P EVAL DR TYLER, CLEARED FOR DC. (Gabrielle Escobar) Medical Decision Making <Gideon Tavarez - Last Filed: 05/03/17 06:49> <Gabrielle Escobar - Last Filed: 05/03/17 11:19> Medical Decision Makin:Patient was evaluated by galley worker but is providing limited answers stating "I don't know" as a response to each question. Patient will be re- evaluated by galley worker. 700: case endorsed to day shift pending reassessment by asphalt plant worker. (Gideon Tavarez) Disposition <Gideon Tavarez - Last Filed: 05/03/17 06:49> Counseled Patient/Family Regarding: Studies Performed, Diagnosis, Need For Followup - Disposition Disposition Time: 11:18 <Gabrielle Escobar - Last Filed: 05/03/17 11:19> - Disposition Referrals: [facility] [Outside] [facility] [Outside] [facility] [Provider Group] Disposition: HOME/ ROUTINE Condition: IMPROVED Instructions: Polysubstance Abuse (ED) Forms: [facility] (Kiswahili) - Clinical Impression Clinical Impression: PCP abuse, Psychosis - Scribe Statement The provider has reviewed the documentation as recorded by the Scribe <Gideon Tavarez - Last Filed: 05/03/17 06:49> <Gabrielle Escobar - Last Filed: 05/03/17 11:19> - Scribe Statement Brandie Prince All medical record entries made by the Scribe were at my direction and personally dictated by me. I have reviewed the chart and agree that the record accurately reflects my personal performance of the history, physical exam, medical decision making, and the department course for this patient. I have also personally directed, reviewed, and agree with the discharge instructions and disposition. (Gideon Tavarez)
[2017-05-03 01:47] LABS: BASO # 0.1 K/uL (0.0-0.2); BASO % 0.9 % (0.0-2.0); EOS # 0.1 K/uL (0.0-0.7); EOS % 2.1 % (0.0-4.0); HEMATOCRIT 38.2 % (35.0-51.0); LYMPH # 2.9 K/uL (1.0-4.3); LYMPH % 43.7 % (20.0-40.0); MEAN CELL VOLUME 84.3 fL (80.0-94.0); MEAN CORPUSCULAR HEMOGLOBIN 28.6 pg (27.0-31.0); MEAN CORPUSCULAR HGB CONC 33.9 g/dL (33.0-37.0); MEAN PLATELET VOLUME 8.1 fL (7.2-11.7); MONO # 0.4 K/uL (0.0-0.8); NRBC % 0.1 % (0.0-2.0); PLATELET COUNT 287 K/uL (130-400); RED CELL DISTRIBUTION WIDTH 13.4 % (11.5-14.5); WHITE BLOOD COUNT 6.6 K/uL (4.8-10.8)
[2017-05-03 01:56] LABS: CHLORIDE 104 mmol/L (98-107); POTASSIUM 3.6 mmol/L (3.6-5.2); SODIUM 145 mmol/L (132-148)
[2017-05-03 01:58] LABS: ALB/GLOB RATIO 1.3 (1.0-2.1); AST/SGOT 19 U/L (17-59); BILIRUBIN,TOTAL 0.5 mg/dL (0.2-1.3); CARBON DIOXIDE 23 mmol/L (22-30); GFR AFRICAN-AMERICAN > 60; TOTAL PROTEIN 7.5 g/dL (6.3-8.3)
[2017-05-03 01:59] LABS: ALCOHOL SERUM 116 mg/dl (0-10); ALKALINE PHOSPHATASE 60 U/L (38-126); ALT/SGPT 30 U/L (21-72); BLOOD UREA NITROGEN 13 mg/dL (9-20); CALCIUM 9.3 mg/dl (8.6-10.4); GLUCOSE,RANDOM 84 mg/dL (75-110)
[2017-05-03 03:32] LABS: URINE BILIRUBIN NEGATIVE (NEGATIVE); URINE BLOOD NEGATIVE (NEGATIVE); URINE COLOR Straw (YELLOW); URINE GLUCOSE (UA) NORMAL (Normal); URINE KETONE NEGATIVE (NEGATIVE); URINE LEUKOCYTE ESTERASE NEG Leu/uL (Negative); URINE PROTEIN NEGATIVE (NEGATIVE); URINE UROBILINOGEN NORMAL mg/dL (0.2-1.0); WBC URINE 3 /hpf (0-5)
[2017-05-03 03:56] LABS: BASOPHIL 1 % (0-2); EOSINOPHIL 3 % (0-4); NEUTROPHIL 42 % (50-75); REACTIVE LYMPHOCYTES 41 % (0-0); TOTAL CELLS COUNTED 100
[2017-05-03 09:05] VITALS: BP 119/80; PULSE 59; RESP 16; TEMP 97.8; O2SAT 98
--- NOTE | 2017-05-03 11:02 | RAD ---
PROCEDURE: CHEST RADIOGRAPH, 1 VIEW HISTORY: med clear COMPARISON: Comparison chest dated 04/06/2017 FINDINGS: LUNGS: Poor inspiration with low lung volumes, crowded bronchovascular markings and mild bibasilar atelectasis. PLEURA: No pneumothorax or pleural fluid seen. CARDIOVASCULAR: Normal. OSSEOUS STRUCTURES: No significant abnormalities. VISUALIZED UPPER ABDOMEN: Normal. OTHER FINDINGS: None. IMPRESSION: Poor inspiration with low lung volumes, crowded bronchovascular markings and mild bibasilar atelectasis.
--- NOTE | 2017-05-05 18:22 | CARD ---
APPROVED REPORT EKG Measurement Heart [id number] <Conclusion> Sinus bradycardia Nonspecific T wave abnormality Abnormal ECG
== END 2017-05-03 11:25 | disposition home or self-care (01) ==
LOC: C.ER 00:42
DX: F29 Unspecified psychosis not due to a substance or known physiological condition (principal); F16.10 Hallucinogen abuse, uncomplicated
CPT/HCPCS: 71010; 80053; 81001; 85025; 99285; G0480